=== PATIENT | male | born 1955 | race Caucasian/White ===

== ENCOUNTER 2017-05-31 18:09 | Emergency (ER) | payer MEDICAID, MEDICARE ==
[2017-05-31 18:52] LABS: Hematocrit 41 % (42-52); Hemoglobin 13.7 g/dl (14.0-18.0); Mean Corpuscular HGB Conc 34 g/dl (31-36); Mean Corpuscular Hemoglobin 29 pg (27-31); Mean Corpuscular Volume 87 fL (80-94); Mean Platelet Volume 9 um3 (7.4-10.4); Platelet Count 195 10^3/ul (150-450); Red Blood Count 4.68 10^6/ul (4.0-5.4); Red Cell Distribution Width 14 % (10.5-15); White Blood Count 6.8 10^3/ul (3.5-10.8)
[2017-05-31 19:00] LABS: ABS Basophils 0 10^3/ul (0-0.2); ABS Eosinophils 0 10^3/ul (0-0.6); ABS Lymphocytes 1.3 10^3/ul (1.0-4.8); ABS Monocytes 0.4 10^3/ul (0-0.8); ABS Neutrophils 4.8 10^3/ul (1.5-7.7); ABS Nucleated RBC 0 10^3/ul; Eosinophil % 0.5 % (0-6); Nucleated Red Blood Cells % 0.1
[2017-05-31 19:06] LABS: EGFR Non-African American 107.9 (>60)
[2017-05-31 19:09] LABS: Urine Appearance Clear; Urine Blood Negative (Negative); Urine Color Colorless; Urine Ketones Negative (Negative); Urine Protein Negative (Negative); Urine Specific Gravity 1.002 (1.010-1.030); Urine Urobilinogen Negative (Negative)
--- NOTE | 2017-05-31 22:14 | ED ---
Deepak Cárdenas Stephanie, scribed for Johnie Caraballo MD on 05/31/17 at 1852 . Substance Abuse/Use - HPI Summary HPI Summary: The pt is a 62 y/o M BIBA to the ED with c/o anxiety that began at 18:13 today. The pt states he is here due to his PTSD, anxiety and depression. Upon arrival to ED, pt states I have been sober for 7 years and now Im drunk. I might as well be . The pt states [facility]. The pt does not report SI or HI to EMS. - History Of Current Complaint Chief Complaint: EDSubstanceAbuse Stated Complaint: MHE Time Seen by Provider: 05/31/17 18:27 Hx Obtained From: Patient, EMS Ingestion History: Type/Name Of Drug - ETOH Overdose Characteristics: Oral Timing Of Abuse: Binge Use Severity Currently: Severe Character: Stuporous Aggravating Factor(s): Other - recent homelessness Alleviating Factor(s): Nothing - Allergies/Home Medications Allergies/Adverse Reactions: Allergies Allergy/AdvReac Type Severity Reaction Status Date / Time MS Ibuprofen [Ibuprofen] Allergy Stomach Verified 06/02/12 23:35 Cramps PMH/Surg Hx/FS Hx/Imm Hx Cardiovascular History: Reports: Hx Hypertension Musculoskeletal History: Reports: Hx Back Problems - history of chronic back pain Sensory History: Reports: Hx Contacts or Glasses Opthamlomology History: Reports: Hx Contacts or Glasses Psychiatric History: Reports: Hx Anxiety, Hx Depression, Hx Post Traumatic Stress Disorder, Hx Inpatient Treatment, Hx Community Mental Health Tx, Hx Suicide Attempt, Hx Substance Abuse Denies: Hx Eating Disorder, Hx of Violent Episodes Against Others - Surgical History Surgery Procedure, Year, and Place: unable to obtain Infectious Disease History: No Infectious Disease History: Reports: Hx Hepatitis Denies: Traveled Outside the [place] in Last 30 Days - Family History Known Family History: Positive: Unknown - Reviewed and non-contributory - Social History Occupation: Unemployed Lives: Detention - States he is homeless Alcohol Use: Rare Hx Substance Use: Yes Substance Use Type: Reports: Marijuana Review of Systems Negative: Fever Positive: Anxious, Depressed All Other Systems Reviewed And Are Negative: Yes Physical Exam - Summary Physical Exam Summary: General: well-appearing, no pain distress, mildly stuporous Skin: warm, color reflects adequate perfusion, dry Head: normal Eyes: EOMI, MISAEL ENT: normal Neck: supple, nontender Respiratory: CTA, breath sounds present Cardiovascular: RRR Abdomen: soft, nontender Bowel: present Musculoskeletal: normal, strength/ROM intact Neurological: normal, sensory/motor intact, A&O x3 Psychological: affect/mood appropriate Triage Information Reviewed: Yes Vital Signs On Initial Exam: Initial Vitals Temp Pulse Resp BP Pulse Ox 96.7 F 79 19 159/93 98 05/31/17 18:11 05/31/17 18:11 05/31/17 18:11 05/31/17 18:11 05/31/17 18:11 Vital Signs Reviewed: Yes Diagnostics - Vital Signs Vital Signs Temp Pulse Resp BP Pulse Ox 05/31/17 18:11 96.7 F 79 19 159/93 98 - Laboratory Lab Results: Lab Results 05/31/17 05/31/17 05/31/17 Range/Units 18:40 18:40 18:50 WBC 6.8 (3.5-10.8) 10^3/ul RBC 4.68 (4.0-5.4) 10^6/ul Hgb 13.7 L (14.0-18.0) g/dl Hct 41 L (42-52) % MCV 87 (80-94) fL MCH 29 (27-31) pg MCHC 34 (31-36) g/dl RDW 14 (10.5-15) % Plt Count 195 (150-450) 10^3/ul MPV 9 (7.4-10.4) um3 Neut % (Auto) 72.7 (38-83) % Lymph % (Auto) 20.0 L (25-47) % [place] % (Auto) 6.2 (0-7) % Eos % (Auto) 0.5 (0-6) % Baso % (Auto) 0.6 (0-2) % Absolute Neuts (auto) 4.8 (1.5-7.7) 10^3/ul Absolute Lymphs (auto) 1.3 (1.0-4.8) 10^3/ul Absolute Monos (auto) 0.4 (0-0.8) 10^3/ul Absolute Eos (auto) 0 (0-0.6) 10^3/ul Absolute Basos (auto) 0 (0-0.2) 10^3/ul Absolute Nucleated RBC 0 10^3/ul Nucleated RBC % 0.1 Sodium 136 (133-145) mmol/L Potassium 3.4 L (3.5-5.0) mmol/L Chloride 101 (101-111) mmol/L Carbon Dioxide 23 (22-32) mmol/L Anion Gap 12 H (2-11) mmol/L BUN 9 (6-24) mg/dL Creatinine 0.74 (0.67-1.17) mg/dL Est GFR ( Amer) 138.8 (>60) Est GFR (Non-Af Amer) 107.9 (>60) BUN/Creatinine Ratio 12.2 (8-20) Glucose 88 (70-100) mg/dL Calcium 9.3 (8.6-10.3) mg/dL Total Bilirubin 0.50 (0.2-1.0) mg/dL AST 23 (13-39) U/L ALT 16 (7-52) U/L Alkaline Phosphatase 64 (34-104) U/L Total Protein 8.0 (6.4-8.9) g/dL Albumin 4.7 (3.2-5.2) g/dL Globulin 3.3 (2-4) g/dL Albumin/Globulin Ratio 1.4 (1-3) TSH 1.52 (0.34-5.60) mcIU/mL Urine Color Colorless Urine Appearance Clear Urine pH 6.0 (5-9) Ur Specific [place] 1.002 L (1.010-1.030) Urine Protein Negative (Negative) Urine Ketones Negative (Negative) Urine Blood Negative (Negative) Urine Nitrate Negative (Negative) Urine Bilirubin Negative (Negative) Urine Urobilinogen Negative (Negative) Ur Leukocyte Esterase Negative (Negative) Urine Glucose Negative (Negative) Salicylates < 2.50 (<30) mg/dL Urine Opiates Screen (None Detect) Acetaminophen < 15 mcg/mL Ur Barbiturates Screen (None Detect) Ur Phencyclidine Scrn (None Detect) Ur Amphetamines Screen (None Detect) U Benzodiazepines Scrn (None Detect) Urine Cocaine Screen (None Detect) U Cannabinoids Screen (None Detect) Serum Alcohol 255 H (<10) mg/dL 05/31/17 Range/Units 18:50 WBC (3.5-10.8) 10^3/ul RBC (4.0-5.4) 10^6/ul Hgb (14.0-18.0) g/dl Hct (42-52) % MCV (80-94) fL MCH (27-31) pg MCHC (31-36) g/dl RDW (10.5-15) % Plt Count (150-450) 10^3/ul MPV (7.4-10.4) um3 Neut % (Auto) (38-83) % Lymph % (Auto) (25-47) % [place] % (Auto) (0-7) % Eos % (Auto) (0-6) % Baso % (Auto) (0-2) % Absolute Neuts (auto) (1.5-7.7) 10^3/ul Absolute Lymphs (auto) (1.0-4.8) 10^3/ul Absolute Monos (auto) (0-0.8) 10^3/ul Absolute Eos (auto) (0-0.6) 10^3/ul Absolute Basos (auto) (0-0.2) 10^3/ul Absolute Nucleated RBC 10^3/ul Nucleated RBC % Sodium (133-145) mmol/L Potassium (3.5-5.0) mmol/L Chloride (101-111) mmol/L Carbon Dioxide (22-32) mmol/L Anion Gap (2-11) mmol/L BUN (6-24) mg/dL Creatinine (0.67-1.17) mg/dL Est GFR ( Amer) (>60) Est GFR (Non-Af Amer) (>60) BUN/Creatinine Ratio (8-20) Glucose (70-100) mg/dL Calcium (8.6-10.3) mg/dL Total Bilirubin (0.2-1.0) mg/dL AST (13-39) U/L ALT (7-52) U/L Alkaline Phosphatase (34-104) U/L Total Protein (6.4-8.9) g/dL Albumin (3.2-5.2) g/dL Globulin (2-4) g/dL Albumin/Globulin Ratio (1-3) TSH (0.34-5.60) mcIU/mL Urine Color Urine Appearance Urine pH (5-9) Ur Specific [place] (1.010-1.030) Urine Protein (Negative) Urine Ketones (Negative) Urine Blood (Negative) Urine Nitrate (Negative) Urine Bilirubin (Negative) Urine Urobilinogen (Negative) Ur Leukocyte Esterase (Negative) Urine Glucose (Negative) Salicylates (<30) mg/dL Urine Opiates Screen None detected (None Detect) Acetaminophen mcg/mL Ur Barbiturates Screen None detected (None Detect) Ur Phencyclidine Scrn None detected (None Detect) Ur Amphetamines Screen None detected (None Detect) U Benzodiazepines Scrn None detected (None Detect) Urine Cocaine Screen None detected (None Detect) U Cannabinoids Screen Presumptive positive A (None Detect) Serum Alcohol (<10) mg/dL Result Diagrams: 05/31/17 18:40 05/31/17 18:40 Lab Statement: Any lab studies that have been ordered have been reviewed, and results considered in the medical decision making process. Course/Dx - Course Course Of Treatment: MHE AND DISPOSITION PENDING AT SHIFT CHANGE. - Diagnoses Provider Diagnoses: HTN (hypertension), Acute alcohol intoxication, Mental health problem Discharge - Discharge Plan Condition: Stable Disposition: OTHER Discharge Disposition Comment: . Referrals: No Primary Care Phys,NOPCP [Primary Care Provider] - Additional Instructions: Your blood pressure was elevated during todays visit; please follow up with your primary care provider within a week for further evaluation. The documentation as recorded by the Deepak weeks Stephanie accurately reflects the service I personally performed and the decisions made by me, Johnie Caraballo MD.
[2017-06-01] MEDS ORDERED: Potassium Chlor TAB* 20 MEQ TAB.ER PO ONE (11:40)
[2017-06-01 13:46] VITALS: BP 144/88
--- NOTE | 2017-06-01 18:47 | ED ---
Manan Cárdenas Angela, scribed for Aleks Nicole MD on 06/01/17 at 1405 . Progress - Progress Note Progress Note: This pt was signed out by Dr. Lema, pending disposition, awaiting MHE. Pt was medically cleared by Dr. Caraballo. Pt was evaluated by the mental health plasterer spot and his case was reviewed by Dr. Mendez. Dr. Mendez recommends for the pt to be discharged. Pt will be discharged to home, in stable condition, with a diagnosis of alcohol intoxication. Condition: Stable Disposition: Home Course/Dx - Diagnoses Provider Diagnoses: Alcohol intoxication The documentation as recorded by the Manan weeks Angela accurately reflects the service I personally performed and the decisions made by Corey cummins Walter, MD.
== END 2017-06-01 13:55 ==
LOC: ED 18:09
DX: F10.129 Alcohol abuse with intoxication, unspecified (principal); F48.9 Nonpsychotic mental disorder, unspecified; I10 Essential (primary) hypertension
CPT/HCPCS: 36415; 80053; 80307; 80320; 80329; 81003; 84443; 85025; 99283; A9270-GY; G0480

== ENCOUNTER 2017-06-12 19:37 | Inpatient (IN) | payer OTHER ==
[2017-06-12 21:35] LABS: ABS Basophils 0 10^3/ul (0-0.2); ABS Eosinophils 0.1 10^3/ul (0-0.6); ABS Lymphocytes 1.3 10^3/ul (1.0-4.8); ABS Monocytes 0.2 10^3/ul (0-0.8); ABS Neutrophils 2.2 10^3/ul (1.5-7.7); ABS Nucleated RBC 0 10^3/ul; Eosinophil % 1.4 % (0-6); Hematocrit 39 % (42-52); Hemoglobin 13.2 g/dl (14.0-18.0); Lymphocyte % 33.2 % (25-47); Mean Corpuscular HGB Conc 34 g/dl (31-36); Mean Corpuscular Hemoglobin 29 pg (27-31); Mean Corpuscular Volume 87 fL (80-94); Mean Platelet Volume 9 um3 (7.4-10.4); Nucleated Red Blood Cells % 0; Platelet Count 187 10^3/ul (150-450); Red Blood Count 4.51 10^6/ul (4.0-5.4); Red Cell Distribution Width 14 % (10.5-15); White Blood Count 3.8 10^3/ul (3.5-10.8)
[2017-06-12 21:57] LABS: EGFR Non-African American 103.1 (>60)
[2017-06-13 03:02] LABS: Urine Appearance Clear; Urine Blood Negative (Negative); Urine Color Straw; Urine Ketones Negative (Negative); Urine Protein Negative (Negative); Urine Specific Gravity 1.004 (1.010-1.030); Urine Urobilinogen Negative (Negative)
--- NOTE | 2017-06-13 09:17 | PN ---
ED Flex Patient Progress Note Date of Service: 06/13/17 Subjective: This is a 62 year-old M who is pending transfer to another psychiatric facility , [facility], secondary to SI, depression Pt offers no complaints at this time, is watching tv comfortably. Objective: Vitals: Most recent vital signs documented below. General NAD, Alert and oriented x3. Heart: rrr at 74 bpm Lungs: CTA or with rales, rhonchi, wheezing Laboratory: Current laboratory results documented below. Assessment: pending psych transfer to [facility] Plan: Pending psychiatric transfer. will follow up daily. Vital Signs Temp Pulse Resp BP Pulse Ox 97.8 F 91 16 136/91 98 06/13/17 09:12 06/13/17 09:12 06/13/17 09:12 06/13/17 09:12 06/13/17 09:12 Lab Results - Entire Visit 06/13/17 06/13/17 06/12/17 02:37 02:37 21:25 WBC 3.8 RBC 4.51 Hgb 13.2 L Hct 39 L MCV 87 MCH 29 MCHC 34 RDW 14 Plt Count 187 MPV 9 Neut % (Auto) 58.5 Lymph % (Auto) 33.2 [place] % (Auto) 6.4 Eos % (Auto) 1.4 Baso % (Auto) 0.5 Absolute Neuts (auto) 2.2 Absolute Lymphs (auto) 1.3 Absolute Monos (auto) 0.2 Absolute Eos (auto) 0.1 Absolute Basos (auto) 0 Absolute Nucleated RBC 0 Nucleated RBC % 0 Sodium Potassium Chloride Carbon Dioxide Anion Gap BUN Creatinine Est GFR ( Amer) Est GFR (Non-Af Amer) BUN/Creatinine Ratio Glucose Calcium Total Bilirubin AST ALT Alkaline Phosphatase Total Protein Albumin Globulin Albumin/Globulin Ratio Urine Color Straw Urine Appearance Clear Urine pH 5.0 Ur Specific [place] 1.004 L Urine Protein Negative Urine Ketones Negative Urine Blood Negative Urine Nitrate Negative Urine Bilirubin Negative Urine Urobilinogen Negative Ur Leukocyte Esterase Negative Urine Glucose Negative Salicylates Urine Opiates Screen None detected Acetaminophen Ur Barbiturates Screen None detected Ur Phencyclidine Scrn None detected Ur Amphetamines Screen None detected U Benzodiazepines Scrn None detected Urine Cocaine Screen None detected U Cannabinoids Screen Presumptive positive A Serum Alcohol 06/12/17 21:25 WBC RBC Hgb Hct MCV MCH MCHC RDW Plt Count MPV Neut % (Auto) Lymph % (Auto) [place] % (Auto) Eos % (Auto) Baso % (Auto) Absolute Neuts (auto) Absolute Lymphs (auto) Absolute Monos (auto) Absolute Eos (auto) Absolute Basos (auto) Absolute Nucleated RBC Nucleated RBC % Sodium 139 Potassium 3.4 L Chloride 103 Carbon Dioxide 24 Anion Gap 12 H BUN 6 Creatinine 0.77 Est GFR ( Amer) 132.5 Est GFR (Non-Af Amer) 103.1 BUN/Creatinine Ratio 7.8 L Glucose 95 Calcium 9.6 Total Bilirubin 0.40 AST 19 ALT 13 Alkaline Phosphatase 49 Total Protein 7.6 Albumin 4.6 Globulin 3.0 Albumin/Globulin Ratio 1.5 Urine Color Urine Appearance Urine pH Ur Specific [place] Urine Protein Urine Ketones Urine Blood Urine Nitrate Urine Bilirubin Urine Urobilinogen Ur Leukocyte Esterase Urine Glucose Salicylates < 2.50 Urine Opiates Screen Acetaminophen < 15 Ur Barbiturates Screen Ur Phencyclidine Scrn Ur Amphetamines Screen U Benzodiazepines Scrn Urine Cocaine Screen U Cannabinoids Screen Serum Alcohol 185 H
--- NOTE | 2017-06-13 11:16 | PN ---
ED Flex Patient Progress Note Date of Service: 06/13/17 Subjective: 62 year old white male with alcoholism and history of affective problems , off meds, still endorsing suicidal ideations. Patient wishes to be treated in a [facility] setting. Objective: Calm, cooperative; depressed with constricted affect; appears rajinder and older than stated age. Suicidal. Assessment: Unspecified Depressive DO Plan: Pending psychiatric transfer to appropriate [place] facility. Vital Signs Temp Pulse Resp BP Pulse Ox 97.8 F 91 16 136/91 98 06/13/17 09:12 06/13/17 09:12 06/13/17 09:12 06/13/17 09:12 06/13/17 09:12 Lab Results - Entire Visit 06/13/17 06/13/17 06/12/17 02:37 02:37 21:25 WBC 3.8 RBC 4.51 Hgb 13.2 L Hct 39 L MCV 87 MCH 29 MCHC 34 RDW 14 Plt Count 187 MPV 9 Neut % (Auto) 58.5 Lymph % (Auto) 33.2 [place] % (Auto) 6.4 Eos % (Auto) 1.4 Baso % (Auto) 0.5 Absolute Neuts (auto) 2.2 Absolute Lymphs (auto) 1.3 Absolute Monos (auto) 0.2 Absolute Eos (auto) 0.1 Absolute Basos (auto) 0 Absolute Nucleated RBC 0 Nucleated RBC % 0 Sodium Potassium Chloride Carbon Dioxide Anion Gap BUN Creatinine Est GFR ( Amer) Est GFR (Non-Af Amer) BUN/Creatinine Ratio Glucose Calcium Total Bilirubin AST ALT Alkaline Phosphatase Total Protein Albumin Globulin Albumin/Globulin Ratio Urine Color Straw Urine Appearance Clear Urine pH 5.0 Ur Specific [place] 1.004 L Urine Protein Negative Urine Ketones Negative Urine Blood Negative Urine Nitrate Negative Urine Bilirubin Negative Urine Urobilinogen Negative Ur Leukocyte Esterase Negative Urine Glucose Negative Salicylates Urine Opiates Screen None detected Acetaminophen Ur Barbiturates Screen None detected Ur Phencyclidine Scrn None detected Ur Amphetamines Screen None detected U Benzodiazepines Scrn None detected Urine Cocaine Screen None detected U Cannabinoids Screen Presumptive positive A Serum Alcohol 06/12/17 21:25 WBC RBC Hgb Hct MCV MCH MCHC RDW Plt Count MPV Neut % (Auto) Lymph % (Auto) [place] % (Auto) Eos % (Auto) Baso % (Auto) Absolute Neuts (auto) Absolute Lymphs (auto) Absolute Monos (auto) Absolute Eos (auto) Absolute Basos (auto) Absolute Nucleated RBC Nucleated RBC % Sodium 139 Potassium 3.4 L Chloride 103 Carbon Dioxide 24 Anion Gap 12 H BUN 6 Creatinine 0.77 Est GFR ( Amer) 132.5 Est GFR (Non-Af Amer) 103.1 BUN/Creatinine Ratio 7.8 L Glucose 95 Calcium 9.6 Total Bilirubin 0.40 AST 19 ALT 13 Alkaline Phosphatase 49 Total Protein 7.6 Albumin 4.6 Globulin 3.0 Albumin/Globulin Ratio 1.5 Urine Color Urine Appearance Urine pH Ur Specific [place] Urine Protein Urine Ketones Urine Blood Urine Nitrate Urine Bilirubin Urine Urobilinogen Ur Leukocyte Esterase Urine Glucose Salicylates < 2.50 Urine Opiates Screen Acetaminophen < 15 Ur Barbiturates Screen Ur Phencyclidine Scrn Ur Amphetamines Screen U Benzodiazepines Scrn Urine Cocaine Screen U Cannabinoids Screen Serum Alcohol 185 H
--- NOTE | 2017-06-13 14:27 | ED ---
Ferdinand Cárdenas Sixian, scribed for Merrill Casas MD on 06/12/17 at 2124 . Psychiatric Complaint - HPI Summary HPI Summary: This patient is a 62 year old M presenting to ED with a chief complaint of SI and HI since 1900 today. The patient rates the pain 6/10 in severity. Symptoms aggravated and alleviated by nothing. Patient presents and requests MHE. Patient reports that he has been using alcohol and marijuana today. He also states that he has stopped taking his medications and has thoughts of hurting himself and/or others by "taking them to [place] and drowning someone". - History Of Current Complaint Chief Complaint: EDMentalHealth Time Seen by Provider: 06/12/17 20:49 Hx Obtained From: Patient Onset/Duration: Gradual Onset, Lasting Hours, Still Present Timing: Hours Aggravating Factor(s): Nothing Alleviating Factor(s): Nothing Has Suicidal: Reports: Thoughts Has Homicidal: Reports: Thoughts - Allergies/Home Medications Allergies/Adverse Reactions: Allergies Allergy/AdvReac Type Severity Reaction Status Date / Time ibuprofen Allergy Stomach Verified 06/12/17 20:04 Cramps PMH/Surg Hx/FS Hx/Imm Hx Cardiovascular History: Reports: Hx Hypertension Musculoskeletal History: Reports: Hx Back Problems - history of chronic back pain Sensory History: Reports: Hx Contacts or Glasses Opthamlomology History: Reports: Hx Contacts or Glasses Psychiatric History: Reports: Hx Anxiety, Hx Depression, Hx Post Traumatic Stress Disorder, Hx Inpatient Treatment, Hx Community Mental Health Tx, Hx Suicide Attempt, Hx Substance Abuse Denies: Hx Eating Disorder, Hx of Violent Episodes Against Others - Surgical History Surgery Procedure, Year, and Place: unable to obtain - Immunization History Date of Tetanus Vaccine: unk Date of Influenza Vaccine: unk Infectious Disease History: No Infectious Disease History: Reports: Hx Hepatitis Denies: Traveled Outside the [place] in Last 30 Days - Family History Known Family History: Positive: Unknown - Reviewed and non-contributory - Social History Alcohol Use: Occasionally Hx Substance Use: Yes Substance Use Type: Reports: Marijuana Smoking Status (MU): Former Smoker Review of Systems Negative: Fever Psychological: Other - SI and HI All Other Systems Reviewed And Are Negative: Yes Physical Exam - Summary Physical Exam Summary: Appearance: Well-appearing, no distress, Well-nourished Skin: Warm, color reflects adequate perfusion Head: Normal Head/Face inspection Eyes: Conjunctiva clear ENT: Normal inspection Neck: Supple, no nodes, no JVD. Respiratory: Lungs clear, Normal breath sounds, no respiratory distress Cardio: RRR, No murmur, pulses normal, brisk capillary refill Abdomen: soft, nontender, no guarding, no rebound Bowel sounds: present Musculoskeletal: Strength Intact/ ROM intact. No calf tenderness. No edema. Neuro: Alert, muscle tone normal, facial symmetry, speech normal, sensory/motor intact Psychological: Sl, HI, calm and cooperative Triage Information Reviewed: Yes Vital Signs On Initial Exam: Initial Vitals Temp Pulse Resp BP Pulse Ox 98.2 F 81 20 131/90 98 06/12/17 19:39 06/12/17 19:39 06/12/17 19:39 06/12/17 19:39 06/12/17 19:39 Vital Signs Reviewed: Yes Diagnostics - Vital Signs Vital Signs Temp Pulse Resp BP Pulse Ox 06/12/17 19:39 98.2 F 81 20 131/90 98 - Laboratory Lab Results: Lab Results 06/12/17 06/12/17 06/13/17 Range/Units 21:25 21:25 02:37 WBC 3.8 (3.5-10.8) 10^3/ul RBC 4.51 (4.0-5.4) 10^6/ul Hgb 13.2 L (14.0-18.0) g/dl Hct 39 L (42-52) % MCV 87 (80-94) fL MCH 29 (27-31) pg MCHC 34 (31-36) g/dl RDW 14 (10.5-15) % Plt Count 187 (150-450) 10^3/ul MPV 9 (7.4-10.4) um3 Neut % (Auto) 58.5 (38-83) % Lymph % (Auto) 33.2 (25-47) % [place] % (Auto) 6.4 (0-7) % Eos % (Auto) 1.4 (0-6) % Baso % (Auto) 0.5 (0-2) % Absolute Neuts (auto) 2.2 (1.5-7.7) 10^3/ul Absolute Lymphs (auto) 1.3 (1.0-4.8) 10^3/ul Absolute Monos (auto) 0.2 (0-0.8) 10^3/ul Absolute Eos (auto) 0.1 (0-0.6) 10^3/ul Absolute Basos (auto) 0 (0-0.2) 10^3/ul Absolute Nucleated RBC 0 10^3/ul Nucleated RBC % 0 Sodium 139 (133-145) mmol/L Potassium 3.4 L (3.5-5.0) mmol/L Chloride 103 (101-111) mmol/L Carbon Dioxide 24 (22-32) mmol/L Anion Gap 12 H (2-11) mmol/L BUN 6 (6-24) mg/dL Creatinine 0.77 (0.67-1.17) mg/dL Est GFR ( Amer) 132.5 (>60) Est GFR (Non-Af Amer) 103.1 (>60) BUN/Creatinine Ratio 7.8 L (8-20) Glucose 95 (70-100) mg/dL Calcium 9.6 (8.6-10.3) mg/dL Total Bilirubin 0.40 (0.2-1.0) mg/dL AST 19 (13-39) U/L ALT 13 (7-52) U/L Alkaline Phosphatase 49 (34-104) U/L Total Protein 7.6 (6.4-8.9) g/dL Albumin 4.6 (3.2-5.2) g/dL Globulin 3.0 (2-4) g/dL Albumin/Globulin Ratio 1.5 (1-3) Urine Color Urine Appearance Urine pH (5-9) Ur Specific [place] (1.010-1.030) Urine Protein (Negative) Urine Ketones (Negative) Urine Blood (Negative) Urine Nitrate (Negative) Urine Bilirubin (Negative) Urine Urobilinogen (Negative) Ur Leukocyte Esterase (Negative) Urine Glucose (Negative) Salicylates < 2.50 (<30) mg/dL Urine Opiates Screen None detected (None Detect) Acetaminophen < 15 mcg/mL Ur Barbiturates Screen None detected (None Detect) Ur Phencyclidine Scrn None detected (None Detect) Ur Amphetamines Screen None detected (None Detect) U Benzodiazepines Scrn None detected (None Detect) Urine Cocaine Screen None detected (None Detect) U Cannabinoids Screen Presumptive positive A (None Detect) Serum Alcohol 185 H (<10) mg/dL 03/17/18 Range/Units 02:37 WBC (3.5-10.8) 10^3/ul RBC (4.0-5.4) 10^6/ul Hgb (14.0-18.0) g/dl Hct (42-52) % MCV (80-94) fL MCH (27-31) pg MCHC (31-36) g/dl RDW (10.5-15) % Plt Count (150-450) 10^3/ul MPV (7.4-10.4) um3 Neut % (Auto) (38-83) % Lymph % (Auto) (25-47) % [place] % (Auto) (0-7) % Eos % (Auto) (0-6) % Baso % (Auto) (0-2) % Absolute Neuts (auto) (1.5-7.7) 10^3/ul Absolute Lymphs (auto) (1.0-4.8) 10^3/ul Absolute Monos (auto) (0-0.8) 10^3/ul Absolute Eos (auto) (0-0.6) 10^3/ul Absolute Basos (auto) (0-0.2) 10^3/ul Absolute Nucleated RBC 10^3/ul Nucleated RBC % Sodium (133-145) mmol/L Potassium (3.5-5.0) mmol/L Chloride (101-111) mmol/L Carbon Dioxide (22-32) mmol/L Anion Gap (2-11) mmol/L BUN (6-24) mg/dL Creatinine (0.67-1.17) mg/dL Est GFR ( Amer) (>60) Est GFR (Non-Af Amer) (>60) BUN/Creatinine Ratio (8-20) Glucose (70-100) mg/dL Calcium (8.6-10.3) mg/dL Total Bilirubin (0.2-1.0) mg/dL AST (13-39) U/L ALT (7-52) U/L Alkaline Phosphatase (34-104) U/L Total Protein (6.4-8.9) g/dL Albumin (3.2-5.2) g/dL Globulin (2-4) g/dL Albumin/Globulin Ratio (1-3) Urine Color Straw Urine Appearance Clear Urine pH 5.0 (5-9) Ur Specific [place] 1.004 L (1.010-1.030) Urine Protein Negative (Negative) Urine Ketones Negative (Negative) Urine Blood Negative (Negative) Urine Nitrate Negative (Negative) Urine Bilirubin Negative (Negative) Urine Urobilinogen Negative (Negative) Ur Leukocyte Esterase Negative (Negative) Urine Glucose Negative (Negative) Salicylates (<30) mg/dL Urine Opiates Screen (None Detect) Acetaminophen mcg/mL Ur Barbiturates Screen (None Detect) Ur Phencyclidine Scrn (None Detect) Ur Amphetamines Screen (None Detect) U Benzodiazepines Scrn (None Detect) Urine Cocaine Screen (None Detect) U Cannabinoids Screen (None Detect) Serum Alcohol (<10) mg/dL Result Diagrams: 06/12/17 21:25 06/12/17 21:25 Lab Statement: Any lab studies that have been ordered have been reviewed, and results considered in the medical decision making process. Course/Dx - Differential Dx/Clinical Impression Provider Diagnosis: Mood disorder, Alcohol abuse Discharge - Discharge Plan Condition: Stable Disposition: PSYCHIATRIC FACILITY-OTHER Discharge Disposition Comment: Patient is signed out to Dr. Caraballo, pending disposition, awaiting MHE. Referrals: No Primary Care Phys,NOPCP [Primary Care Provider] - Additional Instructions: RETURN TO THE EMERGENCY DEPARTMENT FOR CHANGING OR WORSENING SYMPTOMS. The documentation as recorded by the Ferdinand weeks Sixian accurately reflects the service I personally performed and the decisions made by , Merrill Casas MD.
[2017-06-14] MEDS ORDERED: Acetaminophen TAB* 325 MG PO ONE (07:52)
--- NOTE | 2017-06-14 09:17 | PN ---
ED Flex Patient Progress Note Date of Service: 06/14/17 Subjective: This is a 62 year-old M who is pending transfer to another psychiatric facility, [facility], secondary to SI, depression Pt offers no complaints at this time, is watching tv comfortably. Objective: Vitals: Most recent vital signs documented below. General NAD, Alert and oriented x3. Heart: rrr at 74 bpm Lungs: CTA or with rales, rhonchi, wheezing Laboratory: Current laboratory results documented below. Assessment: pending psych transfer to [facility] Plan: Pending psychiatric transfer. will follow up daily. Vital Signs Temp Pulse Resp BP Pulse Ox 97.5 F 64 16 138/87 100 06/14/17 07:53 06/14/17 07:53 06/14/17 07:53 06/14/17 07:53 06/14/17 07:53 Lab Results - Entire Visit 06/13/17 06/13/17 06/12/17 02:37 02:37 21:25 WBC 3.8 RBC 4.51 Hgb 13.2 L Hct 39 L MCV 87 MCH 29 MCHC 34 RDW 14 Plt Count 187 MPV 9 Neut % (Auto) 58.5 Lymph % (Auto) 33.2 [place] % (Auto) 6.4 Eos % (Auto) 1.4 Baso % (Auto) 0.5 Absolute Neuts (auto) 2.2 Absolute Lymphs (auto) 1.3 Absolute Monos (auto) 0.2 Absolute Eos (auto) 0.1 Absolute Basos (auto) 0 Absolute Nucleated RBC 0 Nucleated RBC % 0 Sodium Potassium Chloride Carbon Dioxide Anion Gap BUN Creatinine Est GFR ( Amer) Est GFR (Non-Af Amer) BUN/Creatinine Ratio Glucose Calcium Total Bilirubin AST ALT Alkaline Phosphatase Total Protein Albumin Globulin Albumin/Globulin Ratio Urine Color Straw Urine Appearance Clear Urine pH 5.0 Ur Specific [place] 1.004 L Urine Protein Negative Urine Ketones Negative Urine Blood Negative Urine Nitrate Negative Urine Bilirubin Negative Urine Urobilinogen Negative Ur Leukocyte Esterase Negative Urine Glucose Negative Salicylates Urine Opiates Screen None detected Acetaminophen Ur Barbiturates Screen None detected Ur Phencyclidine Scrn None detected Ur Amphetamines Screen None detected U Benzodiazepines Scrn None detected Urine Cocaine Screen None detected U Cannabinoids Screen Presumptive positive A Serum Alcohol 06/12/17 21:25 WBC RBC Hgb Hct MCV MCH MCHC RDW Plt Count MPV Neut % (Auto) Lymph % (Auto) [place] % (Auto) Eos % (Auto) Baso % (Auto) Absolute Neuts (auto) Absolute Lymphs (auto) Absolute Monos (auto) Absolute Eos (auto) Absolute Basos (auto) Absolute Nucleated RBC Nucleated RBC % Sodium 139 Potassium 3.4 L Chloride 103 Carbon Dioxide 24 Anion Gap 12 H BUN 6 Creatinine 0.77 Est GFR ( Amer) 132.5 Est GFR (Non-Af Amer) 103.1 BUN/Creatinine Ratio 7.8 L Glucose 95 Calcium 9.6 Total Bilirubin 0.40 AST 19 ALT 13 Alkaline Phosphatase 49 Total Protein 7.6 Albumin 4.6 Globulin 3.0 Albumin/Globulin Ratio 1.5 Urine Color Urine Appearance Urine pH Ur Specific [place] Urine Protein Urine Ketones Urine Blood Urine Nitrate Urine Bilirubin Urine Urobilinogen Ur Leukocyte Esterase Urine Glucose Salicylates < 2.50 Urine Opiates Screen Acetaminophen < 15 Ur Barbiturates Screen Ur Phencyclidine Scrn Ur Amphetamines Screen U Benzodiazepines Scrn Urine Cocaine Screen U Cannabinoids Screen Serum Alcohol 185 H
--- NOTE | 2017-06-14 13:10 | PN ---
ED Flex Patient Progress Note Date of Service: 06/14/17 Subjective: This is ED day number 2 for this 62 year old white male with alcoholism and history of affective problems, off meds, still endorsing suicidal ideations. Patient wishes to be treated in a [facility] setting. Objective: Calm, cooperative; depressed with constricted affect; appears rajinder and older than stated age. Suicidal. Assessment: Unspecified Depressive DO Plan: Pending psychiatric transfer to appropriate [place] facility. Vital Signs Temp Pulse Resp BP Pulse Ox 97.5 F 64 16 138/87 100 06/14/17 07:53 06/14/17 07:53 06/14/17 07:53 06/14/17 07:53 06/14/17 07:53 Lab Results - Entire Visit 06/13/17 06/13/17 06/12/17 02:37 02:37 21:25 WBC 3.8 RBC 4.51 Hgb 13.2 L Hct 39 L MCV 87 MCH 29 MCHC 34 RDW 14 Plt Count 187 MPV 9 Neut % (Auto) 58.5 Lymph % (Auto) 33.2 Lane % (Auto) 6.4 Eos % (Auto) 1.4 Baso % (Auto) 0.5 Absolute Neuts (auto) 2.2 Absolute Lymphs (auto) 1.3 Absolute Monos (auto) 0.2 Absolute Eos (auto) 0.1 Absolute Basos (auto) 0 Absolute Nucleated RBC 0 Nucleated RBC % 0 Sodium Potassium Chloride Carbon Dioxide Anion Gap BUN Creatinine Est GFR ( Amer) Est GFR (Non-Af Amer) BUN/Creatinine Ratio Glucose Calcium Total Bilirubin AST ALT Alkaline Phosphatase Total Protein Albumin Globulin Albumin/Globulin Ratio Urine Color Straw Urine Appearance Clear Urine pH 5.0 Ur Specific [place] 1.004 L Urine Protein Negative Urine Ketones Negative Urine Blood Negative Urine Nitrate Negative Urine Bilirubin Negative Urine Urobilinogen Negative Ur Leukocyte Esterase Negative Urine Glucose Negative Salicylates Urine Opiates Screen None detected Acetaminophen Ur Barbiturates Screen None detected Ur Phencyclidine Scrn None detected Ur Amphetamines Screen None detected U Benzodiazepines Scrn None detected Urine Cocaine Screen None detected U Cannabinoids Screen Presumptive positive A Serum Alcohol 06/12/17 21:25 WBC RBC Hgb Hct MCV MCH MCHC RDW Plt Count MPV Neut % (Auto) Lymph % (Auto) Lane % (Auto) Eos % (Auto) Baso % (Auto) Absolute Neuts (auto) Absolute Lymphs (auto) Absolute Monos (auto) Absolute Eos (auto) Absolute Basos (auto) Absolute Nucleated RBC Nucleated RBC % Sodium 139 Potassium 3.4 L Chloride 103 Carbon Dioxide 24 Anion Gap 12 H BUN 6 Creatinine 0.77 Est GFR ( Amer) 132.5 Est GFR (Non-Af Amer) 103.1 BUN/Creatinine Ratio 7.8 L Glucose 95 Calcium 9.6 Total Bilirubin 0.40 AST 19 ALT 13 Alkaline Phosphatase 49 Total Protein 7.6 Albumin 4.6 Globulin 3.0 Albumin/Globulin Ratio 1.5 Urine Color Urine Appearance Urine pH Ur Specific [place] Urine Protein Urine Ketones Urine Blood Urine Nitrate Urine Bilirubin Urine Urobilinogen Ur Leukocyte Esterase Urine Glucose Salicylates < 2.50 Urine Opiates Screen Acetaminophen < 15 Ur Barbiturates Screen Ur Phencyclidine Scrn Ur Amphetamines Screen U Benzodiazepines Scrn Urine Cocaine Screen U Cannabinoids Screen Serum Alcohol 185 H
[2017-06-15] MEDS: hydrOXYzine HCL TAB* 50 MG PO PRN (08:00)
--- NOTE | 2017-06-15 08:55 | PN ---
ED Flex Patient Progress Note Date of Service: 06/15/17 Subjective: This is a 62 year-old M who is pending transfer to another psychiatric facility secondary to SI ideation. Pt offers no complaints at this time or is c/o . Objective: Vitals: Most recent vital signs documented below. General NAD, Alert and oriented x3. Heart: rrr at 80bpm Lungs: CTA or with rales, rhonchi, wheezing abd: soft nontender Laboratory: Current laboratory results documented below. Assessment: SI Plan: Pending psychiatric to transfer to accepting facility will follow up daily until accepted. condition: stable disposition: transfer Vital Signs Temp Pulse Resp BP Pulse Ox 97.5 F 64 16 138/87 100 06/14/17 07:53 06/14/17 07:53 06/14/17 07:53 06/14/17 07:53 06/14/17 07:53 Lab Results - Entire Visit 06/13/17 06/13/17 06/12/17 02:37 02:37 21:25 WBC 3.8 RBC 4.51 Hgb 13.2 L Hct 39 L MCV 87 MCH 29 MCHC 34 RDW 14 Plt Count 187 MPV 9 Neut % (Auto) 58.5 Lymph % (Auto) 33.2 [place] % (Auto) 6.4 Eos % (Auto) 1.4 Baso % (Auto) 0.5 Absolute Neuts (auto) 2.2 Absolute Lymphs (auto) 1.3 Absolute Monos (auto) 0.2 Absolute Eos (auto) 0.1 Absolute Basos (auto) 0 Absolute Nucleated RBC 0 Nucleated RBC % 0 Sodium Potassium Chloride Carbon Dioxide Anion Gap BUN Creatinine Est GFR ( Amer) Est GFR (Non-Af Amer) BUN/Creatinine Ratio Glucose Calcium Total Bilirubin AST ALT Alkaline Phosphatase Total Protein Albumin Globulin Albumin/Globulin Ratio Urine Color Straw Urine Appearance Clear Urine pH 5.0 Ur Specific [place] 1.004 L Urine Protein Negative Urine Ketones Negative Urine Blood Negative Urine Nitrate Negative Urine Bilirubin Negative Urine Urobilinogen Negative Ur Leukocyte Esterase Negative Urine Glucose Negative Salicylates Urine Opiates Screen None detected Acetaminophen Ur Barbiturates Screen None detected Ur Phencyclidine Scrn None detected Ur Amphetamines Screen None detected U Benzodiazepines Scrn None detected Urine Cocaine Screen None detected U Cannabinoids Screen Presumptive positive A Serum Alcohol 06/12/17 21:25 WBC RBC Hgb Hct MCV MCH MCHC RDW Plt Count MPV Neut % (Auto) Lymph % (Auto) [place] % (Auto) Eos % (Auto) Baso % (Auto) Absolute Neuts (auto) Absolute Lymphs (auto) Absolute Monos (auto) Absolute Eos (auto) Absolute Basos (auto) Absolute Nucleated RBC Nucleated RBC % Sodium 139 Potassium 3.4 L Chloride 103 Carbon Dioxide 24 Anion Gap 12 H BUN 6 Creatinine 0.77 Est GFR ( Amer) 132.5 Est GFR (Non-Af Amer) 103.1 BUN/Creatinine Ratio 7.8 L Glucose 95 Calcium 9.6 Total Bilirubin 0.40 AST 19 ALT 13 Alkaline Phosphatase 49 Total Protein 7.6 Albumin 4.6 Globulin 3.0 Albumin/Globulin Ratio 1.5 Urine Color Urine Appearance Urine pH Ur Specific [place] Urine Protein Urine Ketones Urine Blood Urine Nitrate Urine Bilirubin Urine Urobilinogen Ur Leukocyte Esterase Urine Glucose Salicylates < 2.50 Urine Opiates Screen Acetaminophen < 15 Ur Barbiturates Screen Ur Phencyclidine Scrn Ur Amphetamines Screen U Benzodiazepines Scrn Urine Cocaine Screen U Cannabinoids Screen Serum Alcohol 185 H
--- NOTE | 2017-06-15 09:08 | PN ---
ED Flex Patient Progress Note Date of Service: 06/15/17 Subjective: This is ED day number 3 for this 62 year old white male with alcoholism and history of affective problems, off meds, still endorsing suicidal ideations. Patient wishes to be treated in a [facility] setting. Objective: Calm, cooperative; depressed with constricted affect; appears rajinder and older than stated age. Suicidal. Assessment: Unspecified Depressive DO Plan: Pending psychiatric transfer to appropriate [place] facility. Vital Signs Temp Pulse Resp BP Pulse Ox 97.5 F 64 16 138/87 100 06/14/17 07:53 06/14/17 07:53 06/14/17 07:53 06/14/17 07:53 06/14/17 07:53 Lab Results - Entire Visit 06/13/17 06/13/17 06/12/17 02:37 02:37 21:25 WBC 3.8 RBC 4.51 Hgb 13.2 L Hct 39 L MCV 87 MCH 29 MCHC 34 RDW 14 Plt Count 187 MPV 9 Neut % (Auto) 58.5 Lymph % (Auto) 33.2 [place] % (Auto) 6.4 Eos % (Auto) 1.4 Baso % (Auto) 0.5 Absolute Neuts (auto) 2.2 Absolute Lymphs (auto) 1.3 Absolute Monos (auto) 0.2 Absolute Eos (auto) 0.1 Absolute Basos (auto) 0 Absolute Nucleated RBC 0 Nucleated RBC % 0 Sodium Potassium Chloride Carbon Dioxide Anion Gap BUN Creatinine Est GFR ( Amer) Est GFR (Non-Af Amer) BUN/Creatinine Ratio Glucose Calcium Total Bilirubin AST ALT Alkaline Phosphatase Total Protein Albumin Globulin Albumin/Globulin Ratio Urine Color Straw Urine Appearance Clear Urine pH 5.0 Ur Specific [place] 1.004 L Urine Protein Negative Urine Ketones Negative Urine Blood Negative Urine Nitrate Negative Urine Bilirubin Negative Urine Urobilinogen Negative Ur Leukocyte Esterase Negative Urine Glucose Negative Salicylates Urine Opiates Screen None detected Acetaminophen Ur Barbiturates Screen None detected Ur Phencyclidine Scrn None detected Ur Amphetamines Screen None detected U Benzodiazepines Scrn None detected Urine Cocaine Screen None detected U Cannabinoids Screen Presumptive positive A Serum Alcohol 06/12/17 21:25 WBC RBC Hgb Hct MCV MCH MCHC RDW Plt Count MPV Neut % (Auto) Lymph % (Auto) [place] % (Auto) Eos % (Auto) Baso % (Auto) Absolute Neuts (auto) Absolute Lymphs (auto) Absolute Monos (auto) Absolute Eos (auto) Absolute Basos (auto) Absolute Nucleated RBC Nucleated RBC % Sodium 139 Potassium 3.4 L Chloride 103 Carbon Dioxide 24 Anion Gap 12 H BUN 6 Creatinine 0.77 Est GFR ( Amer) 132.5 Est GFR (Non-Af Amer) 103.1 BUN/Creatinine Ratio 7.8 L Glucose 95 Calcium 9.6 Total Bilirubin 0.40 AST 19 ALT 13 Alkaline Phosphatase 49 Total Protein 7.6 Albumin 4.6 Globulin 3.0 Albumin/Globulin Ratio 1.5 Urine Color Urine Appearance Urine pH Ur Specific [place] Urine Protein Urine Ketones Urine Blood Urine Nitrate Urine Bilirubin Urine Urobilinogen Ur Leukocyte Esterase Urine Glucose Salicylates < 2.50 Urine Opiates Screen Acetaminophen < 15 Ur Barbiturates Screen Ur Phencyclidine Scrn Ur Amphetamines Screen U Benzodiazepines Scrn Urine Cocaine Screen U Cannabinoids Screen Serum Alcohol 185 H
[2017-06-15] MEDS ORDERED: Acetaminophen TAB* 325 MG PO ONE (15:09)
--- NOTE | 2017-06-16 08:56 | PN ---
ED Flex Patient Progress Note Date of Service: 06/16/17 Subjective: This is a 62 year-old M who is pending transfer to another psychiatric facility secondary to SI. Pt offers no complaints at this time. He ate and slept well. Objective: Vitals: Most recent vital signs documented below. General NAD, Alert and oriented x3. Heart: rrr at 70 bpm Lungs: CTA or with rales, rhonchi, wheezing abd: soft nontender Laboratory: Current laboratory results documented below. Assessment: SI Plan: Pending psychiatric to transfer when accepted by [place] facility will follow up daily until accepted condition:Stable Disposition: transfer Vital Signs Temp Pulse Resp BP Pulse Ox 97.8 F 70 16 132/77 100 06/16/17 06:28 06/16/17 06:28 06/16/17 06:28 06/16/17 06:28 06/16/17 06:28 Lab Results - Entire Visit 06/13/17 06/13/17 06/12/17 02:37 02:37 21:25 WBC 3.8 RBC 4.51 Hgb 13.2 L Hct 39 L MCV 87 MCH 29 MCHC 34 RDW 14 Plt Count 187 MPV 9 Neut % (Auto) 58.5 Lymph % (Auto) 33.2 [place] % (Auto) 6.4 Eos % (Auto) 1.4 Baso % (Auto) 0.5 Absolute Neuts (auto) 2.2 Absolute Lymphs (auto) 1.3 Absolute Monos (auto) 0.2 Absolute Eos (auto) 0.1 Absolute Basos (auto) 0 Absolute Nucleated RBC 0 Nucleated RBC % 0 Sodium Potassium Chloride Carbon Dioxide Anion Gap BUN Creatinine Est GFR ( Amer) Est GFR (Non-Af Amer) BUN/Creatinine Ratio Glucose Calcium Total Bilirubin AST ALT Alkaline Phosphatase Total Protein Albumin Globulin Albumin/Globulin Ratio Urine Color Straw Urine Appearance Clear Urine pH 5.0 Ur Specific [place] 1.004 L Urine Protein Negative Urine Ketones Negative Urine Blood Negative Urine Nitrate Negative Urine Bilirubin Negative Urine Urobilinogen Negative Ur Leukocyte Esterase Negative Urine Glucose Negative Salicylates Urine Opiates Screen None detected Acetaminophen Ur Barbiturates Screen None detected Ur Phencyclidine Scrn None detected Ur Amphetamines Screen None detected U Benzodiazepines Scrn None detected Urine Cocaine Screen None detected U Cannabinoids Screen Presumptive positive A Serum Alcohol 06/12/17 21:25 WBC RBC Hgb Hct MCV MCH MCHC RDW Plt Count MPV Neut % (Auto) Lymph % (Auto) [place] % (Auto) Eos % (Auto) Baso % (Auto) Absolute Neuts (auto) Absolute Lymphs (auto) Absolute Monos (auto) Absolute Eos (auto) Absolute Basos (auto) Absolute Nucleated RBC Nucleated RBC % Sodium 139 Potassium 3.4 L Chloride 103 Carbon Dioxide 24 Anion Gap 12 H BUN 6 Creatinine 0.77 Est GFR ( Amer) 132.5 Est GFR (Non-Af Amer) 103.1 BUN/Creatinine Ratio 7.8 L Glucose 95 Calcium 9.6 Total Bilirubin 0.40 AST 19 ALT 13 Alkaline Phosphatase 49 Total Protein 7.6 Albumin 4.6 Globulin 3.0 Albumin/Globulin Ratio 1.5 Urine Color Urine Appearance Urine pH Ur Specific [place] Urine Protein Urine Ketones Urine Blood Urine Nitrate Urine Bilirubin Urine Urobilinogen Ur Leukocyte Esterase Urine Glucose Salicylates < 2.50 Urine Opiates Screen Acetaminophen < 15 Ur Barbiturates Screen Ur Phencyclidine Scrn Ur Amphetamines Screen U Benzodiazepines Scrn Urine Cocaine Screen U Cannabinoids Screen Serum Alcohol 185 H
[2017-06-16] MEDS: Acetaminophen TAB* 325 MG PO PRN (09:27)
[2017-06-16] MEDS: hydrOXYzine HCL TAB* 50 MG PO PRN (09:44)
--- NOTE | 2017-06-16 11:02 | PN ---
ED Flex Patient Progress Note Date of Service: 06/16/17 Subjective: This is ED day number 4 for this 62 year old white male with alcoholism and history of affective problems, off meds, still endorsing suicidal ideations. Patient wishes to be treated in a [facility] setting. Objective: Calm, cooperative; depressed with constricted affect; appears rajinder and older than stated age. Suicidal. Assessment: Unspecified Depressive DO Plan: Pending psychiatric transfer to appropriate [place] facility. Vital Signs Temp Pulse Resp BP Pulse Ox 97.5 F 74 20 135/83 100 06/16/17 08:55 06/16/17 08:55 06/16/17 08:55 06/16/17 08:55 06/16/17 08:55 Lab Results - Entire Visit 06/13/17 06/13/17 06/12/17 02:37 02:37 21:25 WBC 3.8 RBC 4.51 Hgb 13.2 L Hct 39 L MCV 87 MCH 29 MCHC 34 RDW 14 Plt Count 187 MPV 9 Neut % (Auto) 58.5 Lymph % (Auto) 33.2 [place] % (Auto) 6.4 Eos % (Auto) 1.4 Baso % (Auto) 0.5 Absolute Neuts (auto) 2.2 Absolute Lymphs (auto) 1.3 Absolute Monos (auto) 0.2 Absolute Eos (auto) 0.1 Absolute Basos (auto) 0 Absolute Nucleated RBC 0 Nucleated RBC % 0 Sodium Potassium Chloride Carbon Dioxide Anion Gap BUN Creatinine Est GFR ( Amer) Est GFR (Non-Af Amer) BUN/Creatinine Ratio Glucose Calcium Total Bilirubin AST ALT Alkaline Phosphatase Total Protein Albumin Globulin Albumin/Globulin Ratio Urine Color Straw Urine Appearance Clear Urine pH 5.0 Ur Specific [employer] 1.004 L Urine Protein Negative Urine Ketones Negative Urine Blood Negative Urine Nitrate Negative Urine Bilirubin Negative Urine Urobilinogen Negative Ur Leukocyte Esterase Negative Urine Glucose Negative Salicylates Urine Opiates Screen None detected Acetaminophen Ur Barbiturates Screen None detected Ur Phencyclidine Scrn None detected Ur Amphetamines Screen None detected U Benzodiazepines Scrn None detected Urine Cocaine Screen None detected U Cannabinoids Screen Presumptive positive A Serum Alcohol 06/12/17 21:25 WBC RBC Hgb Hct MCV MCH MCHC RDW Plt Count MPV Neut % (Auto) Lymph % (Auto) [place] % (Auto) Eos % (Auto) Baso % (Auto) Absolute Neuts (auto) Absolute Lymphs (auto) Absolute Monos (auto) Absolute Eos (auto) Absolute Basos (auto) Absolute Nucleated RBC Nucleated RBC % Sodium 139 Potassium 3.4 L Chloride 103 Carbon Dioxide 24 Anion Gap 12 H BUN 6 Creatinine 0.77 Est GFR ( Amer) 132.5 Est GFR (Non-Af Amer) 103.1 BUN/Creatinine Ratio 7.8 L Glucose 95 Calcium 9.6 Total Bilirubin 0.40 AST 19 ALT 13 Alkaline Phosphatase 49 Total Protein 7.6 Albumin 4.6 Globulin 3.0 Albumin/Globulin Ratio 1.5 Urine Color Urine Appearance Urine pH Ur Specific [employer] Urine Protein Urine Ketones Urine Blood Urine Nitrate Urine Bilirubin Urine Urobilinogen Ur Leukocyte Esterase Urine Glucose Salicylates < 2.50 Urine Opiates Screen Acetaminophen < 15 Ur Barbiturates Screen Ur Phencyclidine Scrn Ur Amphetamines Screen U Benzodiazepines Scrn Urine Cocaine Screen U Cannabinoids Screen Serum Alcohol 185 H
[2017-06-16] MEDS ORDERED: LORazepam TAB(*) 1 MG PO ONE (12:56)
[2017-06-16] MEDS ORDERED: Al Hydrox/Mg Hydrox/Simet LIQ* 30 ML UDC PO PRN (17:15)
--- NOTE | 2017-06-16 18:05 | ED ---
Progress - Consult/PCP Time Called: 19:37 Course/Dx - Course Course Of Treatment: [facility] - Diagnoses Provider Diagnoses: Mood disorder, Alcohol abuse Discharge - Sign-Out/Discharge Documenting (check all that apply): Discharge - [facility] - Discharge Plan Condition: Stable Disposition: PSYCHIATRIC FACILITY-OTHER Referrals: No Primary Care Phys,NOPCP [Primary Care Provider] - Additional Instructions: RETURN TO THE EMERGENCY DEPARTMENT FOR CHANGING OR WORSENING SYMPTOMS. - Billing Disposition and Condition Condition: STABLE Disposition: PSY-OT
[2017-06-16] MEDS ORDERED: hydrOXYzine HCL TAB* 50 MG PO ONE (19:05)
[2017-06-17] MEDS: Acetaminophen TAB* 325 MG PO PRN ×2 (06:58→15:49)
[2017-06-17] MEDS: hydrOXYzine HCL TAB* 50 MG PO PRN ×3 (06:58→18:01)
--- NOTE | 2017-06-17 12:58 | PN ---
MHU: Group Therapy Note - Service Type Service Type: [id number] Group Psychotherapy - Cognitive Behavioral Group Therapy ( CBT):Patient attended CBT programming this morning and presented with flat affect that did not vary with discussion. Although responsive to direct prompts to respond to questions, patient did not engage in spontaneous conversation.
[2017-06-18] MEDS: Acetaminophen TAB* 325 MG PO PRN (04:23)
[2017-06-18] MEDS: hydrOXYzine HCL TAB* 50 MG PO PRN (06:44)
--- NOTE | 2017-06-18 08:25 | PN ---
Subjective - Subjective Date of Service: 06/17/17 Service Type: [id number] Hosp care 15 min low complexity Subjective: I asked to speak with Reji to work on his H&P. He stated he did not want to talk. I asked again, stating I would be his prescriber this visit, and he still did not want to speak with me. Objective - Appearance Appearance: Healthy Appearing Dysmorphic Features: No Hygiene: Normal Grooming: Fairly Well Kept - Behavior Psychomotor Activities: Normal Exhibits Abnormal Movement: No - Attitude and Relatedness Attitude and Relatedness: Irritable Eye Contact: Poor - Speech Quantity: Terse - Mood Patient's Decription of Mood: I don't want to talk - Affect Observed Affect: Tense Affect Consistent with: Dysphoria - Sensorium Experiencing Hallucinations: No, Sensorium is Clear - Level of Consciousness Level of Consciousness: Agitated Orientation: Yes Intact, Yes Orientated to Time, Yes Orientated to Place, Yes Orientated to Person - Impulse Control Impulse Control: Impaired - Additional Observations Comments: Reji is irritable and unpleasant to talk to. Assessment - Assessment Merits Inpatient Hospitalization: For Immediate Safety Plan - Plan Treatment Plan: Name: REJI SANTANA Birthdate: 1955 [id number] Continued Medication Management: Continue Outpt Medication Medications: Current Medications Acetaminophen (Tylenol Tab*) 975 mg PO Q8H PRN PRN Reason: PAIN Last Admin: 06/18/17 04:23 Dose: 975 mg Al Hydrox/Mg Hydrox/Simethicone (Maalox Plus*) 30 ml PO Q4H PRN PRN Reason: INDIGESTION Haloperidol (Haldol Tab*) 5 mg PO Q6H PRN PRN Reason: AGITATION Hydroxyzine HCl (Atarax Tab*) 50 mg PO Q6H PRN PRN Reason: ANXIETY Last Admin: 06/18/17 06:44 Dose: 50 mg Lorazepam (Ativan Tab(*)) 1 mg PO Q6H PRN PRN Reason: AGITATION - Discharge Plan Discharge Plan: Drug/Alcohol Rehab
[2017-06-18] MEDS: LORazepam TAB(*) 1 MG PO PRN (13:01)
--- NOTE | 2017-06-18 13:51 | PN ---
MHU: Group Therapy Note - Service Type Service Type: [id number] Group Psychotherapy - Cognitive Behavioral Group Therapy ( CBT):Patient was attentive and participatory in CBT programming this morning, and remained in good behavioral control. Patient expressed positive insights regarding relevant treatment interventions and goals. Reji was agitated at times, objecting to people standing behind him and changing his seating. He remained attentive to discussion despite becoming somewhat upset.
--- NOTE | 2017-06-18 14:56 | HP ---
HISTORY AND PHYSICAL: DATE OF ADMISSION: 06/16/17 SUPERVISING PHYSICIAN: Socrates Mendez MD* (dictated by Sangita Hull NP). JUSTIFICATION FOR ADMISSION: The patient is in need of 24-hour supervision and care secondary to suicidal ideation and homicidal ideation when he was intoxicated. CHIEF COMPLAINT: "I am always anxious." HISTORY OF PRESENT ILLNESS: Reji is a 62-year-old male who is . He is white. He has a history of suicidal ideation, homicidal ideation, alcoholism, PTSD, and depression. He is currently on a voluntary status after coming to the hospital intoxicated and stating that he had a plan to kill himself and to kill others by drowning them in [place]. PAST PSYCHIATRIC HISTORY: He was previously admitted to this unit in 2012 with provider, Andrae Ferrell as the prescriber. Since that admission, he has been admitted to programs in [place], [place], for about 7 years. He was treated for alcoholism, depression, and anxiety. Before that, he was hospitalized here at [facility] in 2009 and in 1982. In the outpatient setting, he went to the [facility] in [place], [place], for 6 months. He saw a psychiatrist on a regular basis when he was in [place] and he has gone to [facility] in the past. His past psychiatric diagnoses are alcohol dependence and posttraumatic stress disorder. His past psychiatric medications include fluoxetine and paroxetine. Past suicide/self-harm in 1981 when he tried to hang himself and in 1982 he overdosed on pain pills. 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 PAST MEDICAL HISTORY: He does have hypertension for which he used to take amlodipine, but he stopped taking that. 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 At the point of last evaluation that is 5 years ago, he had not gotten treatment. [facility] and blood work. It is unclear to me whether he has done this. He denies head injuries or seizures. FAMILY HISTORY: He was adopted. SUBSTANCE ABUSE HISTORY: He is a smoker. He is an alcoholic. He was sober for several months after leaving a program in [place], [place], but he did relapse. He started drinking when he was 13. He started drinking daily in high school. His use increased when he was in the and he began using alcohol heavily after his in 2009. He does go to [facility] meetings in the past. 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 He smokes marijuana heavily and is positive for that in his drug screen. SOCIAL HISTORY: He was born in [place] and he was adopted when he was 10 months old. He grew up in [place]. 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 He was in the army for 10 years and served in [place]. He has not worked regularly since the early . He was for 28 years and his of congestive heart failure when she was 57 years old in 2009. No one in his family is still living. He does have 1 friend in [place]. He is currently homeless. He does not have any children. He currently gets social security and is [facility]. REVIEW OF SYSTEMS: The patient reports feeling fatigued. He denies SOB, heat or cold intolerance, chest pain or abdominal pain. He denies neurological symptoms. He denies fever or changes in weight. PHYSICAL EXAMINATION VITAL SIGNS: As of 06/17/17, temperature is 98.0 Fahrenheit, pulse is 83, respiratory rate is 18, O2 sat on room air is 98%, blood pressure is 135/84. For further exam data, please see emergency department records. LABORATORY DATA: His hemoglobin and hematocrit are low. Potassium is a slightly low. The most relevant result is that he has presumptive positives on cannabinoids screening and on 06/12/17 when he came in, he had a serum alcohol of 185. He has triglycerides of 316, cholesterol 227, LDL cholesterol 111, HDL cholesterol 52.5. I do not see information about hemoglobin A1c. MENTAL STATUS EXAM: This is an average height, average weight, 62-year-old male who appears older than his stated age. His grooming is good. His behavior is within normal limits. He is calm and cooperative today, although yesterday he was irritable and slightly hostile. He has normal rate of speech, tone, and volume. There is a slight stutter at the beginning of our conversation , which may be attributed to anxiety. He appears to be euthymic today with a congruent affect. His thought process is logical. He is not delusional. He does not have auditory hallucinations or visual hallucinations. He is not currently suicidal or homicidal. His insight is good. His judgment is fair. He is alert and oriented x3. He is an intelligent man. He appears to have average intelligence. DIAGNOSES: [place] I: Posttraumatic stress disorder, generalized anxiety disorder , and major depressive disorder. [place] II: Deferred. [place] III: Hypertension. IMPRESSION: This is a 62-year-old man appearing older than his stated age who has a history of being admitted here twice before and is interested in treatment in [place] [facility]. He arrived at the hospital intoxicated and suicidal and homicidal with plans. At this point, he is not intoxicated. He is pleasant to talk to. He is not suicidal or homicidal. PLAN: The patient is admitted to the adult behavioral health unit and placed on q. 15-minute checks for his own safety. The patient is encouraged to participate in supportive milieu, individual, and group therapy. Estimated length of stay is 5 to 7 days. We will restart medications and monitor for mood and thought content. Discharge planning will include his outpatient providers. SANGITA HULL NP [id number]/CPS #: [id number]/CPS #: [id number] FREDDY
--- NOTE | 2017-06-18 15:13 | HP ---
HISTORY AND PHYSICAL: ADDENDUM: PHYSICAL EXAMINATION VITAL SIGNS: As of 06/17/17, temperature is 98.0 Fahrenheit, pulse is 83, respiratory rate is 18, O2 sat on room air is 98%, blood pressure is 135/84. For further exam data, please see emergency department records. LABORATORY DATA: His hemoglobin and hematocrit are low. Potassium is a tiny bit low. The most rel evant result is that he has presumptive positives on cannabinoids screening and on 06/12/17 when he c dayday in, he had a serum alcohol of 185. He has triglycerides of 316, cholesterol 227, LDL cholesterol 111, HDL cholesterol 52.5. I do not see information about hemoglobin A1c. MENTAL STATUS EXAM: This is an average height, average weight, 62-year-old male who appears older th an his stated age. His grooming is good. His behavior is within normal limits. He is calm and coop erative today, although yesterday he was irritable and slightly hostile. He has normal rate of speec h, tone, and volume. There is a slight stutter at the beginning of our conversation, which may be att ributed to anxiety. He appears to be euthymic today with a congruent affect. His thought process is logical. He is not delusional. He does not have auditory hallucinations or visual hallucinations. He is not currently suicidal or homicidal. His insight is good. His judgment is fair. He is alert and oriented x3. He is an intelligent man. He appears to have average intelligence. DIAGNOSES: [place] I: Posttraumatic stress disorder, generalized anxiety disorder, and major depressiv e disorder. [place] II: Deferred. [place] III: Hypertension. IMPRESSION: This is a 62-year-old man appearing older than his stated age who has a history of being admitted here twice before and is interested in treatment in [place] [facility]. He arrived at the hospital intoxicated and suicidal and homicidal with plans. At this point, he is n ot intoxicated. He is pleasant to talk to. He is not suicidal or homicidal. PLAN: The patient is admitted to the adult behavioral health unit and placed on q. 15-minute checks for his own safety. The patient is encouraged to participate in supportive milieu, individual, and g roup therapy. Estimated length of stay is 5 to 7 days. We will restart medications and monitor for mood and thought content. Discharge planning will include his outpatient providers. YOU ALLISON, MYKEL [id number]/[facility] #: [id number]
[2017-06-18] MEDS: Naproxen TAB* 250 MG PO SCH ×2 (15:28→22:16)
--- NOTE | 2017-06-18 15:33 | PN ---
Subjective - Subjective Date of Service: 06/18/17 Service Type: 22634 Hosp care 15 min low complexity Subjective: Reji is far more cooperative today. He denies SI and HI. He feels like he needs to go to a ME facility and is looking forward to having another person advocate for [facility]. He is reasonably happy here and looks forward to more substance treatment when he leaves. He would like to have a studio apartment in [place], where he has lived in the past for 36 years, after his visit for substance use. Objective - Appearance Appearance: Healthy Appearing Dysmorphic Features: No Hygiene: Normal Grooming: Well Kept - Behavior Psychomotor Activities: Normal Exhibits Abnormal Movement: No - Attitude and Relatedness Attitude and Relatedness: Cooperative Eye Contact: Good - Speech Quality: Unpressured Latencies: Normal Quantity: Appropriate - Mood Patient's Decription of Mood: "Good" - Affect Observed Affect: Good Affect Consistent with: Euthymia - Thought Process Patient's Thought Process: Coherent Thought Content: No Passive Wish, No Suicidal Planning, No Homicidal Ideation, No Paranoid Ideation - Sensorium Experiencing Hallucinations: No, Sensorium is Clear Type of Hallucinations: Visual: No, Auditory: No, Command: No - Level of Consciousness Level of Consciousness: Alert Orientation: Yes Intact, Yes Orientated to Time, Yes Orientated to Place, Yes Orientated to Person - Impulse Control Impulse Control: Intact - Insight and Judgement Insight and Judgement: Fair - Group Participation Particating in Group Activities: Yes - Medication Management Medication Management Adherence: Yes - Additional Observations Comments: Reji is pleasant today. He has a happy outlook and is looking forward to the future. Assessment - Assessment Inpatient DSM-V Dx: F43.12 Clinical Impression: Reji is a 62-year old man who lacks family and a home base. he has returned to [place] to receive treatment at the [facility] for substance treatment, specifically alcohol at this time. He states he thrives on structure and is doing well in this atmosphere. He has some insight into needing to have structure in his home environment in the future. Plan - Plan Treatment Plan: Name: REJI SANTANA Birthdate: 1955 [id number] Medications: Current Medications Acetaminophen (Tylenol Tab*) 975 mg PO Q8H PRN PRN Reason: PAIN Last Admin: 06/18/17 04:23 Dose: 975 mg Al Hydrox/Mg Hydrox/Simethicone (Maalox Plus*) 30 ml PO Q4H PRN PRN Reason: INDIGESTION Haloperidol (Haldol Tab*) 5 mg PO Q6H PRN PRN Reason: AGITATION Hydroxyzine HCl (Atarax Tab*) 50 mg PO Q6H PRN PRN Reason: ANXIETY Last Admin: 06/18/17 06:44 Dose: 50 mg Lorazepam (Ativan Tab(*)) 1 mg PO Q6H PRN PRN Reason: AGITATION Last Admin: 06/18/17 13:01 Dose: 1 mg Naproxen (Naprosyn Tab*) 500 mg PO BID JUNIRO - Discharge Plan Discharge Plan: Outpatient Follow Up Additional Comments: Reji will be retained here for stabilization and to determine his housing options and treatment options when he is discharged.
--- NOTE | 2017-06-18 16:30 | PN ---
MHU: Group Therapy Note - Service Type Service Type: [id number] Group Psychotherapy - Medication Education Group: Patient was attentive and participatory in group, and remained in good behavioral control. Patient expressed positive insights regarding relevant treatment interventions. Patient stated understanding of material discussed and had appropriate questions.
[2017-06-19] MEDS: hydrOXYzine HCL TAB* 50 MG PO PRN ×2 (05:30→17:57)
[2017-06-19] MEDS: Naproxen TAB* 250 MG PO SCH ×2 (07:48→20:46)
--- NOTE | 2017-06-19 11:59 | PN ---
MHU: Group Therapy Note - Service Type Service Type: [id number] Group Psychotherapy - Cognitive Behavioral Group Therapy ( CBT):Patient was attentive and participatory in CBT programming this morning, and remained in good behavioral control. Patient expressed positive insights regarding relevant treatment interventions and goals.
[2017-06-19] MEDS: LORazepam TAB(*) 1 MG PO PRN (13:02)
--- NOTE | 2017-06-19 13:33 | PN ---
Subjective - Subjective Date of Service: 06/19/17 Service Type: 78250 Hosp care 15 min low complexity Subjective: Reji is mainly interested in being allowed to go for a walk. He is also, of course, interested in whether he has gotten into the [facility], which he has not. He is generally doing well, he reports. He states, "I'm hanging in there." Objective - Appearance Appearance: Healthy Appearing Dysmorphic Features: No Hygiene: Normal Grooming: Well Kept - Behavior Psychomotor Activities: Normal Exhibits Abnormal Movement: No - Attitude and Relatedness Attitude and Relatedness: Cooperative Eye Contact: Good - Speech Quality: Unpressured Latencies: Normal Quantity: Terse - Mood Patient's Decription of Mood: "Fine" - Affect Observed Affect: Good Affect Consistent with: Euthymia - Thought Process Patient's Thought Process: Coherent Thought Content: No Passive Wish, No Suicidal Planning, No Homicidal Ideation, No Paranoid Ideation - Sensorium Experiencing Hallucinations: No, Sensorium is Clear Type of Hallucinations: Visual: No, Auditory: No, Command: No - Level of Consciousness Level of Consciousness: Alert Orientation: No Intact, No Orientated to Time, No Orientated to Place, No Orientated to Person - Impulse Control Impulse Control: Impaired - Insight and Judgement Insight and Judgement: Impaired - Group Participation Particating in Group Activities: Yes - Medication Management Medication Management Adherence: Yes - Additional Observations Comments: Reji is pleasant today, although he does tend to easily become irritable. Nevertheless, he is merely irritated with the difficult millieu. Assessment - Assessment Merits Inpatient Hospitalization: For Stabilization Inpatient DSM-V Dx: F43.12 Clinical Impression: Reji is a 62-year old man who lacks family and a home base. he has returned to [place] to receive treatment at the [facility] for substance treatment, specifically alcohol at this time. He states he thrives on structure and is doing well in this atmosphere. He has some insight into needing to have structure in his home environment in the future. Plan - Plan Treatment Plan: Name: REJI SANTANA Birthdate: 1955 [id number] Continued Medication Management: Continue Outpt Medication Medications: Current Medications Acetaminophen (Tylenol Tab*) 975 mg PO Q8H PRN PRN Reason: PAIN Last Admin: 06/18/17 04:23 Dose: 975 mg Al Hydrox/Mg Hydrox/Simethicone (Maalox Plus*) 30 ml PO Q4H PRN PRN Reason: INDIGESTION Haloperidol (Haldol Tab*) 5 mg PO Q6H PRN PRN Reason: AGITATION Hydroxyzine HCl (Atarax Tab*) 50 mg PO Q6H PRN PRN Reason: ANXIETY Last Admin: 06/19/17 05:30 Dose: 50 mg Lorazepam (Ativan Tab(*)) 1 mg PO Q6H PRN PRN Reason: AGITATION Last Admin: 06/19/17 13:02 Dose: 1 mg Naproxen (Naprosyn Tab*) 500 mg PO BID JUNIOR Last Admin: 06/19/17 07:48 Dose: 500 mg - Discharge Plan Discharge Plan: Drug/Alcohol Rehab Outpatient Program: [facility] Additional Comments: Reji will be retained here for stabilization and to determine his housing options and treatment options when he is discharged. We are pursuing the [facility] rehab program. That is where Reji has had success in the past and he would like to return there. This unit is attempting to gain access to reasons why he hasn't been accepted in order to get him accepted now.
[2017-06-20] MEDS: hydrOXYzine HCL TAB* 50 MG PO PRN (05:07)
[2017-06-20] MEDS: Naproxen TAB* 250 MG PO SCH ×2 (07:53→21:14)
[2017-06-20] MEDS: Haloperidol TAB* 5 MG PO PRN (09:31)
[2017-06-20] MEDS: LORazepam TAB(*) 1 MG PO PRN (09:31)
[2017-06-21] MEDS: hydrOXYzine HCL TAB* 50 MG PO PRN (06:30)
[2017-06-21] MEDS: Naproxen TAB* 250 MG PO SCH ×2 (07:29→21:24)
[2017-06-21] MEDS: Haloperidol TAB* 5 MG PO PRN (11:57)
[2017-06-21] MEDS: LORazepam TAB(*) 1 MG PO PRN (11:57)
--- NOTE | 2017-06-21 16:25 | PN ---
Subjective - Subjective Date of Service: 06/21/17 Service Type: 36716 Hosp care 15 min low complexity Subjective: Reji was in his room deep asleep while his peers were playing Bingo. Says he was not interested and just awaiting transfer to [facility]. Reports that he is depressed but not suicidal anymore. Also denies hallucinations or delusions or any symptoms reminiscent of PTSD. Objective - Appearance Appearance: Well Developed/Nourished Dysmorphic Features: No Hygiene: Normal Grooming: Fairly Well Kept - Behavior Psychomotor Activities: Normal Exhibits Abnormal Movement: No - Attitude and Relatedness Attitude and Relatedness: Superficially Cooperative Eye Contact: Poor - Speech Quality: Unpressured Latencies: Normal Quantity: Appropriate - Mood Patient's Decription of Mood: "Sad" - Affect Observed Affect: Depressed - Thought Process Patient's Thought Process: Coherent, Goal Directed Thought Content: No Passive Wish, No Suicidal Planning, No Homicidal Ideation, No Paranoid Ideation - Sensorium Experiencing Hallucinations: No, Sensorium is Clear Type of Hallucinations: Visual: No, Auditory: No, Command: No - Level of Consciousness Level of Consciousness: Alert Orientation: Yes Intact, Yes Orientated to Time, Yes Orientated to Place, Yes Orientated to Person - Impulse Control Impulse Control: Intact - Insight and Judgement Insight and Judgement: Poor - Group Participation Particating in Group Activities: No - Medication Management Medication Management Adherence: Yes Assessment - Assessment Merits Inpatient Hospitalization: For Immediate Safety, For Stabilization, Pending Safe DC Plan Inpatient DSM-V Dx: F43.12 Clinical Impression: Still unpredictable and acutely depressed. Needs ongoing hospitalizatio and transfer to a longer term care [facility]. Plan - Plan Treatment Plan: Name: REJI SANTANA Birthdate: 1955 [id number] Continued Medication Management: Continue Outpt Medication Medications: Current Medications Acetaminophen (Tylenol Tab*) 975 mg PO Q8H PRN PRN Reason: PAIN Last Admin: 06/18/17 04:23 Dose: 975 mg Al Hydrox/Mg Hydrox/Simethicone (Maalox Plus*) 30 ml PO Q4H PRN PRN Reason: INDIGESTION Haloperidol (Haldol Tab*) 5 mg PO Q6H PRN PRN Reason: AGITATION Last Admin: 06/21/17 11:57 Dose: 5 mg Hydroxyzine HCl (Atarax Tab*) 50 mg PO Q6H PRN PRN Reason: ANXIETY Last Admin: 06/21/17 06:30 Dose: 50 mg Lorazepam (Ativan Tab(*)) 1 mg PO Q6H PRN PRN Reason: AGITATION Last Admin: 06/21/17 11:57 Dose: 1 mg Naproxen (Naprosyn Tab*) 500 mg PO BID JUNIOR Last Admin: 06/21/17 07:29 Dose: 500 mg - Discharge Plan Discharge Plan: Consider Longer Term Tx - [place] hospital.
[2017-06-22] MEDS: hydrOXYzine HCL TAB* 50 MG PO PRN ×3 (05:55→18:42)
[2017-06-22] MEDS: Naproxen TAB* 250 MG PO SCH ×2 (07:42→20:11)
--- NOTE | 2017-06-22 14:57 | PN ---
Subjective - Subjective Service Type: 40186 Hosp care 15 min low complexity Subjective: Reji is eager to go get treatment for alcohol and drug issues outside of the hospital. He has had some problems dealing with others on the unit, but he also has decided to remain calm and away from problematic situations. Reji talked about wanting to go to the [facility]. He wanted explanations of why he was turned down. Upon receiving those explanations, he was more eager to participate in his own appeal [facility] He also came up with his own idea of living at the [facility] and going to treatment at the [facility]. He shows little insight into what is happening here at the hospital in that he doesn't seem to regard himself as having any agency in making changes or decisions. Objective - Appearance Appearance: Healthy Appearing Dysmorphic Features: No Hygiene: Normal Grooming: Well Kept - Behavior Psychomotor Activities: Normal Exhibits Abnormal Movement: No - Attitude and Relatedness Attitude and Relatedness: Cooperative Eye Contact: Good - Speech Quality: Unpressured Latencies: Normal Quantity: Appropriate - Mood Patient's Decription of Mood: "Fine" - Affect Observed Affect: Good Affect Consistent with: Euthymia - Thought Process Patient's Thought Process: Coherent, Goal Directed Thought Content: No Passive Wish, No Suicidal Planning, No Homicidal Ideation, No Paranoid Ideation - Sensorium Experiencing Hallucinations: No, Sensorium is Clear Type of Hallucinations: Visual: No, Auditory: No, Command: No - Level of Consciousness Level of Consciousness: Alert Orientation: Yes Intact, Yes Orientated to Time, Yes Orientated to Place, Yes Orientated to Person - Impulse Control Impulse Control: Impaired - Insight and Judgement Insight and Judgement: Fair - Group Participation Particating in Group Activities: Yes - Medication Management Medication Management Adherence: Yes - Additional Observations Comments: Reji is pleasant today, although he does tend to easily become irritable. Nevertheless, he continues to be irritated with the difficult milieu. Assessment - Assessment Merits Inpatient Hospitalization: For Stabilization Inpatient DSM-V Dx: F43.12 Clinical Impression: Reji is a 62-year old man who lacks family and a home base. he has returned to [place] to receive treatment at the [facility] for substance treatment, specifically alcohol at this time. He states he thrives on structure and is doing well in this atmosphere. He has some insight into needing to have structure in his home environment in the future. He is making some strides to procure structure in his future. Plan - Plan Treatment Plan: Name: REJI SANTANA Birthdate: 1955 [id number] Medications: Current Medications Acetaminophen (Tylenol Tab*) 975 mg PO Q8H PRN PRN Reason: PAIN Last Admin: 06/18/17 04:23 Dose: 975 mg Al Hydrox/Mg Hydrox/Simethicone (Maalox Plus*) 30 ml PO Q4H PRN PRN Reason: INDIGESTION Haloperidol (Haldol Tab*) 5 mg PO Q6H PRN PRN Reason: AGITATION Last Admin: 06/21/17 11:57 Dose: 5 mg Hydroxyzine HCl (Atarax Tab*) 50 mg PO Q6H PRN PRN Reason: ANXIETY Last Admin: 06/22/17 12:22 Dose: 50 mg Lorazepam (Ativan Tab(*)) 1 mg PO Q6H PRN PRN Reason: AGITATION Last Admin: 06/21/17 11:57 Dose: 1 mg Naproxen (Naprosyn Tab*) 500 mg PO BID JUNIOR Last Admin: 06/22/17 07:42 Dose: 500 mg - Discharge Plan Discharge Plan: Outpatient Follow Up Additional Comments: Reji will be retained here for stabilization and to determine his housing options and treatment options when he is discharged. We are pursuing the [facility] rehab program, [facility], and the [facility].
[2017-06-23] MEDS: hydrOXYzine HCL TAB* 50 MG PO PRN ×2 (06:06→13:02)
[2017-06-23] MEDS: Naproxen TAB* 250 MG PO SCH ×2 (07:29→19:44)
--- NOTE | 2017-06-23 11:25 | PN ---
Subjective - Subjective Date of Service: 06/23/17 Service Type: 50536 Hosp care 15 min low complexity Subjective: Reji is doing better psychiatrically. Although he is superficially happy, he remains irritable and feisty, not appreciating people in his space or business. Reji would like to go to the [facility], apparently, and do outpatient substance treatment at the [facility] [place]. He will have to travel to [place] at least once to accomplish this. Reji is also concerned about sores on his head and his arms. Those on his head he states are from dry air and hard water. We accomplish a potential solution by offering baby shampoo. For his arms and the sores on his head, we will give him hydrocortisone 1% cream QID. Objective - Appearance Appearance: Healthy Appearing Dysmorphic Features: No Hygiene: Normal Grooming: Well Kept - Behavior Psychomotor Activities: Normal Exhibits Abnormal Movement: No - Attitude and Relatedness Attitude and Relatedness: Minimally Cooperative Eye Contact: Good - Speech Quality: Unpressured Latencies: Normal Quantity: Appropriate - Mood Patient's Decription of Mood: "Good" - Affect Observed Affect: Good Affect Consistent with: Euthymia - Thought Process Patient's Thought Process: Coherent Thought Content: No Passive Wish, No Suicidal Planning, No Homicidal Ideation - Sensorium Experiencing Hallucinations: No, Sensorium is Clear Type of Hallucinations: Visual: No, Auditory: No, Command: No - Level of Consciousness Level of Consciousness: Alert Orientation: Yes Intact, Yes Orientated to Time, Yes Orientated to Place, Yes Orientated to Person - Impulse Control Impulse Control: Impaired - Insight and Judgement Insight and Judgement: Fair - Group Participation Particating in Group Activities: Yes - Medication Management Medication Management Adherence: Yes - Additional Observations Comments: Reji is pleasant today, although he does tend to easily become irritable. Nevertheless, he continues to be irritated with the difficult milieu and the sores on his arms and scalp. Assessment - Assessment Merits Inpatient Hospitalization: For Stabilization Inpatient DSM-V Dx: F43.12 Clinical Impression: Reji is a 62-year old man who lacks family and a home base. he has returned to [place] to receive treatment at the [facility] and at the [facility] for outpatient substance abuse treatment, specifically alcohol at this time. He states he thrives on structure and is doing well in this atmosphere. He has some insight into needing to have structure in his home environment in the future. He is making some strides to determine what will be most helpful and easily acquired. Plan - Plan Treatment Plan: Name: REJI SANTANA Birthdate: 1955 [id number] Medications: Current Medications Acetaminophen (Tylenol Tab*) 975 mg PO Q8H PRN PRN Reason: PAIN Last Admin: 06/18/17 04:23 Dose: 975 mg Al Hydrox/Mg Hydrox/Simethicone (Maalox Plus*) 30 ml PO Q4H PRN PRN Reason: INDIGESTION Haloperidol (Haldol Tab*) 5 mg PO Q6H PRN PRN Reason: AGITATION Last Admin: 06/21/17 11:57 Dose: 5 mg Hydrocortisone (Hytone Cream 1%*) 1 applic TOPICAL QID [facility] Hydroxyzine HCl (Atarax Tab*) 50 mg PO Q6H PRN PRN Reason: ANXIETY Last Admin: 06/23/17 06:06 Dose: 50 mg Lorazepam (Ativan Tab(*)) 1 mg PO Q6H PRN PRN Reason: AGITATION Last Admin: 06/21/17 11:57 Dose: 1 mg Naproxen (Naprosyn Tab*) 500 mg PO BID [facility] Last Admin: 06/23/17 07:29 Dose: 500 mg - Discharge Plan Discharge Plan: Drug/Alcohol Rehab Additional Comments: Reji will be retained here for stabilization and to determine his housing options and treatment options when he is discharged. We are pursuing the rehab program at the [facility], and the [facility] paired with outpatient substance use treatment through the [facility].
[2017-06-23] MEDS: Hydrocortisone 1% CREAM* 30 GM TUBE TOPICAL SCH ×3 (13:01→20:42)
--- NOTE | 2017-06-23 13:09 | PN ---
MHU: Group Therapy Note - Service Type Service Type: [id number] Group Psychotherapy - Cognitive Behavioral Group Therapy ( CBT):Patient was attentive and participatory in CBT programming this morning, and remained in good behavioral control. Patient expressed positive insights regarding relevant treatment interventions and goals.
[2017-06-24] MEDS: hydrOXYzine HCL TAB* 50 MG PO PRN ×2 (06:32→13:09)
[2017-06-24] MEDS: Hydrocortisone 1% CREAM* 30 GM TUBE TOPICAL SCH ×4 (08:21→20:13)
[2017-06-24] MEDS: Naproxen TAB* 250 MG PO SCH ×2 (08:22→20:11)
--- NOTE | 2017-06-24 11:47 | PN ---
Subjective - Subjective Service Type: 15092 Hosp care 15 min low complexity Subjective: Reji is found sitting in the milieu relaxing. He states he feels better with the comforting interventions of new shampoo and hydrocortisone cream for his scalp and arms. The scabs on his arms look much better. Reji is eager to go out and get well. he is interested in AA meetings in [place] and the [facility] activities. He would like to be discharged to the [facility]. He states he is feeling much better and is not thinking about drinking. He is motivated at this time for wellness. Also, in Reji's 20s, he states, he fell off scaffolding and hit his back and head. Objective - Appearance Appearance: Healthy Appearing Dysmorphic Features: No Hygiene: Normal Grooming: Well Kept - Behavior Psychomotor Activities: Normal Exhibits Abnormal Movement: No - Attitude and Relatedness Attitude and Relatedness: Cooperative Eye Contact: Good - Speech Quality: Unpressured Latencies: Normal Quantity: Appropriate - Mood Patient's Decription of Mood: "Good" - Affect Observed Affect: Good Affect Consistent with: Euthymia - Thought Process Patient's Thought Process: Coherent, Incoherent, Goal Directed Thought Content: No Passive Wish, No Suicidal Planning, No Homicidal Ideation, No Paranoid Ideation - Sensorium Experiencing Hallucinations: No, Sensorium is Clear Type of Hallucinations: Visual: No, Auditory: No, Command: No - Level of Consciousness Level of Consciousness: Alert Orientation: Yes Intact, Yes Orientated to Time, Yes Orientated to Place, Yes Orientated to Person - Impulse Control Impulse Control: Impaired - Insight and Judgement Insight and Judgement: Impaired - Group Participation Particating in Group Activities: Yes - Medication Management Medication Management Adherence: Yes - Additional Observations Comments: Reji is pleasant today, although he does tend to easily become irritable. He is more in control of that irritability at this time and seems to have built a tolerance to what happens on the unit. Assessment - Assessment Merits Inpatient Hospitalization: For Stabilization, Pending Safe DC Plan Inpatient DSM-V Dx: F43.12 Clinical Impression: Reji is a 62-year old man who lacks family and a home base. he has returned to [place] to receive treatment at the [facility] and at the [facility] for outpatient substance abuse treatment, specifically alcohol at this time. He states he thrives on structure and is doing well in this atmosphere. He has some insight into needing to have structure in his home environment in the future. Plan - Plan Treatment Plan: Name: REJI SANTANA Birthdate: 1955 [id number] Medications: Current Medications Acetaminophen (Tylenol Tab*) 975 mg PO Q8H PRN PRN Reason: PAIN Last Admin: 06/18/17 04:23 Dose: 975 mg Al Hydrox/Mg Hydrox/Simethicone (Maalox Plus*) 30 ml PO Q4H PRN PRN Reason: INDIGESTION Haloperidol (Haldol Tab*) 5 mg PO Q6H PRN PRN Reason: AGITATION Last Admin: 06/21/17 11:57 Dose: 5 mg Hydrocortisone (Hytone Cream 1%*) 1 applic TOPICAL QID [facility] Last Admin: 06/24/17 08:21 Dose: 1 applic Hydroxyzine HCl (Atarax Tab*) 50 mg PO Q6H PRN PRN Reason: ANXIETY Last Admin: 06/24/17 06:32 Dose: 50 mg Lorazepam (Ativan Tab(*)) 1 mg PO Q6H PRN PRN Reason: AGITATION Last Admin: 06/21/17 11:57 Dose: 1 mg Naproxen (Naprosyn Tab*) 500 mg PO BID [facility] Last Admin: 06/24/17 08:22 Dose: 500 mg - Discharge Plan Discharge Plan: Outpatient Follow Up Additional Comments: Reji will be retained here for stabilization and to determine his housing options and treatment options when he is discharged. We are pursuing the rehab program at the [facility], and the [facility] paired with outpatient substance use treatment through the [facility]. He is currently developing ideas for how to create structure in his life once he leaves.
[2017-06-24] MEDS: Acetaminophen TAB* 325 MG PO PRN (18:28)
[2017-06-25] MEDS: Acetaminophen TAB* 325 MG PO PRN ×2 (03:13→16:16)
[2017-06-25] MEDS: hydrOXYzine HCL TAB* 50 MG PO PRN ×2 (05:18→12:56)
[2017-06-25] MEDS: Naproxen TAB* 250 MG PO SCH ×2 (07:33→20:01)
[2017-06-25] MEDS: Hydrocortisone 1% CREAM* 30 GM TUBE TOPICAL SCH ×4 (07:34→20:01)
--- NOTE | 2017-06-25 16:52 | PN ---
MHU: Group Therapy Note - Service Type Service Type: [id number] Group Psychotherapy - Medication Education Group: Patient was attentive and participatory in group, and remained in good behavioral control. Patient expressed positive insights regarding relevant treatment interventions. Patient stated understanding of material discussed and had appropriate questions.
[2017-06-26] MEDS: Acetaminophen TAB* 325 MG PO PRN (03:13)
[2017-06-26] MEDS: hydrOXYzine HCL TAB* 50 MG PO PRN (05:15)
[2017-06-26] MEDS: Hydrocortisone 1% CREAM* 30 GM TUBE TOPICAL SCH ×2 (07:51→11:50)
[2017-06-26] MEDS: Naproxen TAB* 250 MG PO SCH (07:51)
[2017-06-26 07:55] VITALS: BP 134/86
--- NOTE | 2017-06-27 12:26 | DS ---
DISCHARGE SUMMARY: DATE OF ADMISSION: 06/16/17 DATE OF DISCHARGE: 06/26/17 SUPERVISING PHYSICIAN: Aleksandar Avalos MD * (DICTATED BY YOU ALLISON NP ) DIAGNOSES: [place] I: Posttraumatic stress disorder, generalized anxiety disorder, major depressive disorder. [place] II: Deferred. [place] III: Hypertension. CONDITION AT THE TIME OF DISCHARGE: He is improved. He is psychiatrically cleared. He is stable. He did participate in groups and was mildly social with peers. He has done well here psychiatrically. He tolerated the restart of his medications well, which were sertraline and hydroxyzine. He will be attending the [facility] in [place]. MENTAL STATUS EXAM: At the time of discharge, the patient is calm, cooperative. He makes good eye contact. Alert and oriented x3. His grooming is good. His speech is of normal rate and rhythm. His thought processes are logical. He is not psychotic, not delusional. He denies AH, VH, SI, and HI. His insight is good. His judgment is fair. He is willing to follow up. DISCHARGE INSTRUCTIONS TO THE PATIENT: A. Medications: Hydrocortisone 1% cream for rash on the arm and sores on his scalp, naproxen 500 mg p.o. b.i.d., hydroxyzine HCl 50 mg p.o. q.4 hours as needed for anxiety. B. Diet: Regular. C. Activity: As tolerated. He is a nonsmoker. There are no studies pending at the time of discharge. D. [facility]up [facility]: [facility] E. Substance abuse: [facility] and he will follow up on his own. HOSPITAL COURSE: PART A: Reji is a 62-year-old man who is . He is white. He has a history of suicidal ideation, homicidal ideation, alcoholism, PTSD, and depression. He is currently on a voluntary status after coming to the hospital intoxicated and stating that he had a plan to kill himself and to kill others by drowning them in [place]. PART B: Psychiatric treatment was rendered. The patient was admitted to the Adult Behavioral Unit and placed on 15-minute checks for safety. Reji did well on the unit and went to some groups and interacted with peers mild to moderately. He tolerated med changes. Hydroxyzine in particular was restarted for him at 50 mg. Reji is easily angered and frustrated, but calms down rapidly. He benefited from hydroxyzine and found it useful. He also complained of aches and pains, which were likely arthritis related and naproxen was used to treat that. In addition, he had sores on his arms and on his scalp that were treated with hydrocortisone 1% cream. He is improved. He is no longer under the influence of alcohol, which makes a large difference in his reliability and ability to manage affect. He is no longer suicidal or homicidal and he is very goal directed. YOU ALLISON, [employer] ARCHITECT [id number]/[facility] #: [id number] FREDDY
== END 2017-06-26 11:25 | disposition home or self-care (01) | DRG 882 ==
LOC: ED 19:37 → BSU 06-16 19:03
PROVIDERS: ADMIT Psychiatry & Neurology Psychiatry; ATTEND Psychiatry & Neurology Psychiatry
DX: F43.12 Post-traumatic stress disorder, chronic (principal); R45.851 Suicidal ideations; B19.10 Unspecified viral hepatitis B without hepatic coma; R45.850 Homicidal ideations; F41.1 Generalized anxiety disorder; F32.9 Major depressive disorder, single episode, unspecified; Y90.6 Blood alcohol level of 120-199 mg/100 ml; M19.90 Unspecified osteoarthritis, unspecified site; F17.210 Nicotine dependence, cigarettes, uncomplicated; F12.10 Cannabis abuse, uncomplicated; F10.229 Alcohol dependence with intoxication, unspecified; I10 Essential (primary) hypertension; L98.491 Non-pressure chronic ulcer of skin of other sites limited to breakdown of skin
CPT/HCPCS: 36415; 80053; 80061; 80307; 80320; 80329; 81003; 83036; 85025; 90853; 93005; 99222; 99231; 99238; 99283; A9270-GY; G0480

== ENCOUNTER 2017-11-22 09:10 | Emergency (ER) | payer OTHER ==
[2017-11-22 09:50] LABS: Urine Appearance Clear; Urine Blood Negative (Negative); Urine Color Yellow; Urine Ketones Negative (Negative); Urine Protein 1+(30 mg/dL) (Negative); Urine Red Blood Cell Trace(0-2/hpf) (Absent); Urine Specific Gravity 1.018 (1.010-1.030); Urine Urobilinogen Negative (Negative); Urine White Blood Cell Trace(0-5/hpf) (Absent)
[2017-11-22] MEDS ORDERED: Ibuprofen ADULT LIQ* 600 MG/30 ML UDC PO ONE (10:00)
--- NOTE | 2017-11-22 10:05 | ED ---
Psychiatric Complaint - HPI Summary HPI Summary: This patient is a 62 year old M BIBA to ED with a chief complaint of SI since 1 week ago. His sx worsened last night post drinking. He is a and lives with someone who is also a ; both have PTSD. The patient reports that his roommate always wants to drink, so the patient decided to drink last night as well. This morning at 0700, his roommate started to drink again and was telling the patient that he was a loser and a copout for wanting to get medical attention for his SI. The patient then reports he opened up the window and stood there; then was pulled back by his roommate. The patient was on his way to the police station so he could be brought to the ED when he was also having throughts of walking in front of traffic. Has not been taking his depression medications. The patient rates the pain 0/10 in severity. Symptoms aggravated by nothing. Symptoms alleviated by nothing. Patient reports a sore throat. Patient denies fever, HI, hearing voices, and hallucinations. PMHx of HTN (takes his medications regularly) and depression (has had SI attempts before ). - History Of Current Complaint Chief Complaint: EDMentalHealth Time Seen by Provider: 11/22/17 09:26 Hx Obtained From: Patient Onset/Duration: Sudden Onset, Lasting Weeks - 1 week ago, Still Present Timing: Weeks Severity Currently: None Aggravating Factor(s): Nothing Alleviating Factor(s): Nothing Related History: Positive For: Prior Psychiatric Issues Has Suicidal: Reports: Thoughts, Demonstrates Gesture, Has Prior Attempt(s) Has Homicidal: Denies: Thoughts - Allergies/Home Medications Allergies/Adverse Reactions: Allergies Allergy/AdvReac Type Severity Reaction Status Date / Time ibuprofen Allergy Stomach Verified 11/22/17 09:48 Cramps PMH/Surg Hx/FS Hx/Imm Hx Cardiovascular History: Reports: Hx Hypertension Musculoskeletal History: Reports: Hx Back Problems - history of chronic back pain Sensory History: Reports: Hx Contacts or Glasses Denies: Hx Hearing Aid Opthamlomology History: Reports: Hx Contacts or Glasses Psychiatric History: Reports: Hx Anxiety, Hx Depression, Hx Post Traumatic Stress Disorder, Hx Inpatient Treatment, Hx Community Mental Health Tx, Hx Suicide Attempt, Hx Substance Abuse Denies: Hx Eating Disorder, Hx of Violent Episodes Against Others - Surgical History Surgery Procedure, Year, and Place: unable to obtain - Immunization History Date of Tetanus Vaccine: unk Date of Influenza Vaccine: unk Infectious Disease History: No Infectious Disease History: Reports: Hx Hepatitis Denies: Traveled Outside the [place] in Last 30 Days - Family History Known Family History: Negative: Diabetes - Social History Alcohol Use: Daily Alcohol Amount: today Hx Substance Use: Yes Substance Use Type: Reports: Marijuana Substance Use Comment - Amount & Last Used: today Smoking Status (MU): Former Smoker Review of Systems Negative: Fever Positive: Sore Throat Positive: Other - SI; denies HI, hearing voices, hallucinations All Other Systems Reviewed And Are Negative: Yes Physical Exam - Summary Physical Exam Summary: GENERAL: Patient is a well-developed and nourished M who is lying comfortable in the stretcher. Patient is not in any acute respiratory distress. HEAD AND FACE: Normocephalic EYES: PERRLA, EOMI x 2. EARS: Hearing grossly intact. MOUTH: Oropharynx within normal limits. NECK: Supple, trachea is midline, no adenopathy, no JVD, no carotid bruit. CHEST: Symmetric, no tenderness at palpation LUNGS: Clear to auscultation bilaterally. No wheezing or crackles. CVS: Regular rate and rhythm, S1 and S2 present, no murmurs or gallops appreciated. ABDOMEN: Soft, non-tender. Bowel sounds are normal. No abdominal abnormal pulsations. EXTREMITIES: Full ROM in all major joints, no edema, no cyanosis or clubbing. NEURO: Alert and oriented x 3. No acute neurological deficits. Speech is normal and follows commands. SKIN: Dry and warm PSYCH: Positive SI, negative HI, no visual or auditory hallucination, linear thought process and content. Triage Information Reviewed: Yes Vital Signs On Initial Exam: Initial Vitals Temp Pulse Resp BP Pulse Ox 98.7 F 89 16 136/67 95 11/22/17 09:17 11/22/17 09:17 11/22/17 09:17 11/22/17 09:17 11/22/17 09:17 Vital Signs Reviewed: Yes Diagnostics - Vital Signs Vital Signs Temp Pulse Resp BP Pulse Ox 11/22/17 09:17 98.7 F 89 16 136/67 95 - Laboratory Lab Results: Lab Results 11/22/17 Range/Units 09:32 Urine Color Yellow Urine Appearance Clear Urine pH 5.0 (5-9) Ur Specific [place] 1.018 (1.010-1.030) Urine Protein 1+(30 mg/dl) A (Negative) Urine Ketones Negative (Negative) Urine Blood Negative (Negative) Urine Nitrate Negative (Negative) Urine Bilirubin Negative (Negative) Urine Urobilinogen Negative (Negative) Ur Leukocyte Esterase Negative (Negative) Urine WBC (Auto) Trace(0-5/hpf) (Absent) Urine RBC (Auto) Trace(0-2/hpf) (Absent) Urine Bacteria Absent (Absent) Urine Glucose Negative (Negative) Result Diagrams: 11/22/17 10:16 11/22/17 10:16 Lab Statement: Any lab studies that have been ordered have been reviewed, and results considered in the medical decision making process. - EKG 1714 Cardiac Rate: NL - 88 BPM EKG Rhythm: Sinus Rhythm EKG Interpretation: L axis deviation Course/Dx - Course Assessment/Plan: This patient is a 62 year old M BIBA to ED with a chief complaint of SI since 1 week ago. Patient was cleared medically and transferred to [facility]. The patient was evaluated by Dr. Mendez who recommends the patient be transferred to [place] in [place]. The patient understands and agrees. - Differential Dx/Clinical Impression Provider Diagnosis: Depressive disorder Discharge - Sign-Out/Discharge Documenting (check all that apply): Patient Departure - [place] in [place] - Discharge Plan Condition: Stable Disposition: PSYCHIATRIC FACILITY-OTHER Referrals: No Primary Care Phys,NOPCP [Primary Care Provider] - - Billing Disposition and Condition Condition: STABLE Disposition: Psychiatric Facility Other - Attestation Statements Document Initiated by Scribe: Yes Documenting Scribe: Rupert Paiz Provider For Whom Shaji is Documenting (Include Credential): Edi Alonzo MD Scribe Attestation: Rupert Cárdenas, scribed for Edi Alonzo MD on 11/23/17 at 1002. Scribe Documentation Reviewed: Yes Provider Attestation: The documentation as recorded by the Rupert weeks accurately reflects the service I personally performed and the decisions made by me, Edi Alonzo MD
[2017-11-22 10:32] LABS: ABS Basophils 0 10^3/ul (0-0.2); ABS Eosinophils 0 10^3/ul (0-0.6); ABS Lymphocytes 0.5 10^3/ul (1.0-4.8); ABS Monocytes 0.4 10^3/ul (0-0.8); ABS Neutrophils 4.5 10^3/ul (1.5-7.7); ABS Nucleated RBC 0 10^3/ul; Eosinophil % 0.3 % (0-6); Hematocrit 38 % (42-52); Hemoglobin 12.9 g/dl (14.0-18.0); Lymphocyte % 8.7 % (25-47); Mean Corpuscular HGB Conc 34 g/dl (31-36); Mean Corpuscular Hemoglobin 30 pg (27-31); Mean Corpuscular Volume 89 fL (80-94); Mean Platelet Volume 8.7 um3 (7.4-10.4); Nucleated Red Blood Cells % 0; Platelet Count 153 10^3/ul (150-450); Red Cell Distribution Width 14 % (10.5-15); White Blood Count 5.4 10^3/ul (3.5-10.8)
[2017-11-22 10:50] LABS: EGFR Non-African American 88.3 (>60)
[2017-11-22] MEDS ORDERED: Ibuprofen TAB* 600 MG PO ONE (11:22)
[2017-11-23 03:19] VITALS: BP 0/0
--- NOTE | 2017-11-24 11:27 | ED ---
Progress - Progress Note Progress Note: Patient seen for suicidal ideations. Urine was obtained for routine screening. Patient's note indicates no complaints of symptoms and final urine culture reveals 25-50,000 strep group B as well as 10-25,000 of normal kate. No treatment was administered and none will be added at this time. - Consult/PCP Time Called: 13:10 Course/Dx - Diagnoses Provider Diagnoses: Depressive disorder Discharge - Sign-Out/Discharge Documenting (check all that apply): Post-Discharge Follow Up - Discharge Plan Condition: Stable Disposition: PSYCHIATRIC FACILITY-OTHER Referrals: No Primary Care Phys,NOPCP [Primary Care Provider] - - Billing Disposition and Condition Condition: STABLE Disposition: Psychiatric Facility Other
== END 2017-11-23 03:08 ==
LOC: ED 09:10
DX: F32.9 Major depressive disorder, single episode, unspecified (principal); I10 Essential (primary) hypertension; Z87.891 Personal history of nicotine dependence; Z79.899 Other long term (current) drug therapy; Z88.6 Allergy status to analgesic agent
CPT/HCPCS: 36415; 80053; 80307; 80320; 80329; 81003; 81015; 84443; 85025; 87086; 87088; 87651; 93005; 99285; A9270-GY; G0480